=== PATIENT | male | born 1945 | race Caucasian/White ===

== ENCOUNTER → 2016-02-15 | Outpatient (CLI) | payer BC ==
[~2016-02-15] VITALS: Ht 177.8 cm; Wt 102.9 kg
[~2016-02-15] MED LIST: ALPR-411 PO; ASCO1TAB43 PO; ASPEC81 PO; ASPI81TA28 PO; ATOR-26 PO; CALC-20 PO; CAPT100T2 PO; CARV3.122 PO; ESCI1TAB10 PO; FINA5TAB PO; GLIP-197 PO; INSDGI SQ; INSU1INJ2 SC; MELO15TA4 PO; NOVOLOG INSULIN SQ; OXYC-106 PO; OXYSR10 PO; SILD100T PO; SILO8CAP PO; TAMS0.4C38 PO; XRL10 PO
[2016-02-15 14:42] VITALS: BP 155/70; PULSE 76; Ht 177.8 cm; Wt 102.9 kg
== END | disposition home or self-care (01) ==
LOC: C.NEUR 13:54
PROVIDERS: ATTEND Allergy & Immunology Allergy
DX: G47.33 Obstructive sleep apnea (adult) (pediatric) (principal); I10 Essential (primary) hypertension; E78.5 Hyperlipidemia, unspecified; I62.9 Nontraumatic intracranial hemorrhage, unspecified; E11.65 Type 2 diabetes mellitus with hyperglycemia

== ENCOUNTER → 2016-04-04 | Outpatient (CLI) | payer BC ==
[~2016-04-04] VITALS: Ht 177.8 cm; Wt 106.8 kg
[2016-04-04 12:37] VITALS: BP 153/83; PULSE 60; Ht 177.8 cm; Wt 106.8 kg
== END | disposition home or self-care (01) ==
LOC: C.NEUR 11:56
PROVIDERS: ATTEND Internal Medicine Pulmonary Disease
DX: G47.33 Obstructive sleep apnea (adult) (pediatric) (principal); I10 Essential (primary) hypertension; G47.00 Insomnia, unspecified; I62.9 Nontraumatic intracranial hemorrhage, unspecified

== ENCOUNTER → 2016-06-13 | Outpatient (CLI) | payer BC ==
[2016-06-13 14:40] LABS: BASO ABS # 0.07 K/uL (0-0.2); COMPLETE YES; EOS % 5.1 %; HEMATOCRIT 43.4 % (42-52); LYMPH % 33.5 %; LYMPH ABS # 2.28 K/uL (1.2-3.4); MEAN CELL VOLUME 86.1 fL (80-100); MEAN CORPUSCULAR HEMOGLOBIN 27.8 pg (25-34); MEAN CORPUSCULAR HGB CONC 32.3 g/dl (32-36); MEAN PLATELET VOLUME 10.6 fL (7.4-10.4); MONO % 9.9 %; NEUT % 50.5 %; PLATELET COUNT 278 K/uL (130-400); RED BLOOD COUNT 5.04 M/uL (4.7-6.1)
[2016-06-13 14:54] LABS: ESTIMATED AVERAGE GLUCOSE 151 mg/dl; HA1C FLAG Normal (Normal)
--- NOTE | 2016-06-19 12:24 | CODING QUERY MEDICAL NECESSITY ---
CQSUPPORTING DIAGNOSIS NEEDED A supporting diagnosis is required for the test/procedure performed on this patient in order for us to be reimbursed by the patient's insurance. Please provide a supporting diagnosis for the following test/procedure listed below next to the test name along with your signature. *If there is no additional diagnosis for this patient that would support the following test/procedure please document that below next to the test/procedure. Test(s)/Procedure(s) that require a supporting diagnosis: DOS 06/13/16 GLYCATED HEMOGLOBIN TEST ORDERED BY SUHAS LEVY Provider Signature: Date: Thank you Rosie Izaguirre [facility] Information [facility] Once completed, please kindly fax back to [phone] For questions please call [phone]
--- NOTE | 2016-06-19 12:29 | CODING QUERY MEDICAL NECESSITY ---
CQSUPPORTING DIAGNOSIS NEEDED A supporting diagnosis is required for the test/procedure performed on this patient in order for us to be reimbursed by the patient's insurance. Please provide a supporting diagnosis for the following test/procedure listed below next to the test name along with your signature. *If there is no additional diagnosis for this patient that would support the following test/procedure please document that below next to the test/procedure. Test(s)/Procedure(s) that require a supporting diagnosis: DOS 06/13/16 BLOOD COUNT ORDERED BY SUHAS KATHLEEN Provider Signature: Date: Thank you Rosie Izaguirre [facility] Information Management Once completed, please kindly fax back to [phone] For questions please call [phone]
== END | disposition home or self-care (01) ==
LOC: C.LAB1850 13:15
PROVIDERS: ATTEND Physician Assistant
DX: M65.80 Other synovitis and tenosynovitis, unspecified site (principal); E11.65 Type 2 diabetes mellitus with hyperglycemia

== ENCOUNTER → 2016-08-24 | Outpatient (CLI) | payer BC | END | disposition home or self-care (01) | LOC: C.LABSPEC 11:03 | PROVIDERS: ATTEND Nurse Practitioner Family | DX: Z12.5 Encounter for screening for malignant neoplasm of prostate (principal); N40.1 Benign prostatic hyperplasia with lower urinary tract symptoms; N20.0 Calculus of kidney; R32 Unspecified urinary incontinence ==

== ENCOUNTER → 2016-08-31 | Outpatient (CLI) | payer BC ==
--- NOTE | 2016-08-31 13:34 | DIAGNOSTIC IMAGING REPORT ---
KUB CLINICAL HISTORY: N20.0 [id number] nephrocalcinosis COMPARISON STUDY: No previous studies for comparison. FINDINGS: Poor visibility of the renal shadows due to overlying bowel content. Multiple pelvic calcifications both of which are most likely vascular although this is not confirmed. IMPRESSION: Non visibility of the kidneys due to considerable overlying bowel content. Multiple pelvic calcifications most likely vascular although ureteral calcifications cannot be completely excluded The above report was generated using voice recognition software. It may contain grammatical, syntax or spelling errors. Electronically signed by: Tj Vasquez M.D. 08/31/2016 1:33 PM Dictated Date/Time: 08/31/2016 1:31 PM
== END | disposition home or self-care (01) ==
LOC: C.RAD 12:49
PROVIDERS: ATTEND Nurse Practitioner Family
DX: N20.0 Calculus of kidney (principal); Z12.5 Encounter for screening for malignant neoplasm of prostate

== ENCOUNTER → 2016-09-12 | Outpatient (CLI) | payer BC ==
[~2016-09-12] MED LIST changes: -ASPEC81 PO; -NOVOLOG INSULIN SQ; -OXYC-106 PO; -OXYSR10 PO; -SILD100T PO; -XRL10 PO
--- NOTE | 2016-09-12 16:10 | DIAGNOSTIC IMAGING REPORT ---
KUB CLINICAL HISTORY: N20.0 [id number] nephrocalcinosis COMPARISON STUDY: 08/31/2016 FINDINGS: No change in the pelvic calcifications described previously. No new or interval change. Renal and psoas shows are unremarkable. Nonobstructive bowel pattern. IMPRESSION: No change in the left and to a lesser extent right pelvic soft tissue calcifications. No calcifications overlying the kidneys or psoas regions The above report was generated using voice recognition software. It may contain grammatical, syntax or spelling errors. Electronically signed by: Tj Vasquez M.D. 09/12/2016 4:09 PM Dictated Date/Time: 09/12/2016 4:07 PM
== END | disposition home or self-care (01) ==
LOC: C.RAD 15:16
PROVIDERS: ATTEND Nurse Practitioner Family
DX: N20.0 Calculus of kidney (principal)

== ENCOUNTER → 2016-09-27 | Day surgery (SDC) | payer BC ==
[2016-09-11 09:01] VITALS: Ht 177.8 cm; Wt 95.5 kg
[~2016-09-27] VITALS: Ht 177.8 cm; Wt 95.5 kg
[~2016-09-27] MED LIST changes: +EpHEDrine SULFATE 50MG/5ML SYR ONE; +LIDOCAINE HCL 2% 2 ML VIAL (20MG/ML) ONE; +PROPOFOL IV EMULSION 10 MG/ML 20 ML VIAL IV ONE; +SODIUM CHLORIDE 0.9% 500ML 500 ML IV ONE
--- NOTE | 2016-09-27 14:26 | Endo History and Physical ---
History & Physical Date of Service: Sep 27, 2016. Chief Complaint: hx of colon polyps, fhx CRC young age Referring Physician: History of Present Illness Here for colonoscopy for above. NO complaints. Past Medical History Diabetes, Cancer, High Cholesterol, Hypertension, Kidney Disease, CVA/TIA Past Surgical History Hx Cardiac Surgery: Yes (HEART CATH, NO STENTS) Hx Internal Defibrillator: No Hx Pacemaker: No Hx Abdominal Surgery: No Hx of Implantable Prosthesis: No Hx Post-Op Nausea and Vomiting: No Hx Cancer Surgery: Yes (RT KIDNEY TUMOR REMOVAL, MULTIPLE MELANOMA REMOVALS) Hx Thoracic Surgery: No Hx Orthopedic: Yes (RT TKA AND RE-REPLACED 1 YEAR AGO) Hx Urinary Tract Surgery: No Family History Colon CA Social History Smoking Status: Never Smoker Hx Substance Use: No Hx Alcohol Use: Yes (1-2 CANS PER WEEK) Allergies Coded Allergies: No Known Allergies (Verified , 09/27/16) Current Medications Reported Home Medications Medications Dose Route/Sig Max Daily Dose Days Date Category Dose Instructions Flomax (Tamsulosin Hcl) 0.4 Mg Cap 0.4 Mg PO HS 09/11/16 Reported Meloxicam 15 Mg Tab 1 Tab PO QAM 09/11/16 Reported Novolog Penfill (Insulin Aspart) 100 Unit/Ml Inj 1 Dose SC UD 09/11/16 Reported PER SLIDING SCALE Rapaflo (Silodosin) 8 Mg Cap 1 Cap PO QAM 09/11/16 Reported Proscar (Finasteride) 5 Mg Tab 5 Mg PO QAM 09/11/16 Reported Xanax (Alprazolam) 0.5 Mg Tab 0.5 Mg PO QAM 09/11/16 Reported Aspirin Ec (Aspirin) 81 Mg Tab 81 Mg PO QAM 11/02/15 Reported Glipizide Er (Glipizide) 5 Mg Tab 2 Tabs PO QAM 11/02/15 Reported Lantus (Insulin Glargine) 100 Unit/Ml Inj 8 Units SQ HS 11/02/15 Reported Lipitor (Atorvastatin Calcium) 80 Mg Tab 80 Mg PO HS 12/10/13 Reported Coreg (Carvedilol) 3.125 Mg Tab 3.125 Mg PO BID 09/23/13 Reported Sm Vitamin C (Ascorbic Acid) 500 Mg Tab 500 Mg PO QAM 10/08/12 Reported Captopril 100 Mg Tab 200 Mg PO BID 10/08/12 Reported Calcium 600 + D (Calcium Carbonate-Vitamin D) 1 Tab Tab 1 Tab PO QAM 10/08/12 Reported Lexapro (Escitalopram Oxalate) 20 Mg Tab 20 Mg PO QPM 01/03/10 Reported Vital Signs Weight (Kilograms): 95.45 Height (Feet): 5 Height (Inches): 10 Review of Systems Respiratory: No shortness of breath Cardiovascular: No chest pain Physical Exam General Appearance: WD/WN, no apparent distress Respiratory/Chest: Respiratory effort: no dyspnea, good air movement Auscultation: breath sounds normal Cardiovascular: Apical Impulse: not displaced Heart Auscultation: RRR Abdomen: Bowel Sounds: normal Inspection & Palpation: soft, non-distended, no tenderness, guarding & rebound, no masses Liver: no hepatomegaly Assessment and Plan For colonoscopy
--- NOTE | 2016-09-27 15:43 | Discharge Instructions ---
Endoscopy Patient Instructions Date / Procedure(s) Performed Sep 27, 2016. Colonoscopy Allergy Information Coded Allergies: No Known Allergies (Verified , 09/27/16) Discharge Date / Findings Sep 27, 2016. Diverticulosis and colon polyps. Medication Instructions Stopped Medication(s): ASPIRIN 81MG LAST DOSE 09/20/16 Restart Stopped Medication(s): Resume Aspirin tomorrow. Provider Instructions Activity Restrictions - No exercising or heavy lifting for 24 hours. - Do not drink alcohol the day of the procedure. - Do not drive a car or operate machinery until the day after the procedure. - Do not make any important decisions or sign important papers in 24 hours after the procedure. Following Day: - Return to full activity which may include returning to work/school. Diet Start your diet with liquids and light foods (jello, soup, juice, toast). Then eat your usual diet if not nauseated. Treatment For Common After Affects For mild abdominal pain, bloating, or excessive gas: - Rest - Eat lightly - Lie on right side Repeat colonoscopy depending on pathology but probably in 2 years. Follow-Up Information Follow-up with DR. SULLIVAN as scheduled Anesthesia Information What You Should Know You have had a procedure that required some medicine to reduce anxiety and discomfort. This treatment is called moderate sedation. After receiving the treatment, you may be sleepy, but you will be able to breathe on your own. The effects of the treatment may last for several hours. Follow these instructions along with Activity/Diet recommendations noted above: * Do NOT do anything where dizziness or clumsiness would be dangerous. * Rest quietly at home today, then you can be up and about tomorrow. * Have a responsible person stay with you the rest of today. * You may have had an I.V. today. If so, you may take the dressing off later today. Recommendations Call your doctor if: * Trouble breathing * Continuous vomiting for more than 24 hours * Temperature above 101 degrees * Severe abdominal pain or bloating * Pain not relieved by pain medicine ordered * There is increased drainage or redness from any incision * A large amount of rectal bleeding greater than 2-3 tablespoons. (If you had a polyp/s removed or have hemorrhoids, a small amount of blood - from the rectum is to be expected.) * You have any unanswered questions or concerns. IN THE EVENT OF A SERIOUS EMERGENCY, GO TO THE NEAREST EMERGENCY ROOM Your discharge instructions were prepared by provider Joel Moreno. Patient Instructions Signature Page Jonatan Bar Patient (or Guardian) Signature/Date: I have read and understand the instructions given to me by my caregivers. Caregiver/RN/Doctor Signature/Date: The above-named patient and/or guardian has received patient instructions on this date. + Original Patient Signature Page (only) stays with chart. Please make copy for patient.
--- NOTE | 2016-09-27 15:48 | Anesthesiology Progress Note ---
Anesthesia Post Op Note Date & Time Sep 27, 2016 at 15:48 Vital Signs Pain Intensity: 0 Vital Signs Past 12 Hours Date Time Temp Pulse Resp B/P (MAP) Pulse Ox O2 Delivery O2 Flow Rate FiO2 09/27/16 14:27 36.9 57 18 156/82 (106) 97 Room Air Notes Mental Status: alert / awake / arousable, participated in evaluation Pt Amnestic to Procedure: Yes Nausea / Vomiting: adequately controlled Pain: adequately controlled Airway Patency, RR, SpO2: stable & adequate BP & HR: stable & adequate Hydration State: stable & adequate Anesthetic Complications: no major complications apparent
[2016-09-27 15:51] VITALS: BP 127/61; PULSE 69; O2SAT 94
--- NOTE | 2016-09-27 15:56 | Progress Note ---
Progress Note Date of Service Sep 27, 2016. Progress Note pt without complaint. Went over results with patient and .
--- NOTE | 2016-09-28 00:15 | GI REPORT ---
Procedure Date: 09/27/2016 2:22 PM Procedure: Colonoscopy Indications: Screening in patient at increased risk: Colorectal cancer in mother before age 60 (age 39), High risk colon cancer surveillance: Personal history of colonic polyps last colonoscopy 2013 Medicines: Monitored Anesthesia Care Complications: No immediate complications. Estimated blood loss: Minimal. Estimated Blood Loss: Estimated blood loss was minimal. Procedure: Pre-Anesthesia Assessment: - The risks and benefits of the procedure and the sedation options and risks were discussed with the patient. All questions were answered and informed consent was obtained. - Patient identification and proposed procedure were verified prior to the procedure by the physician, the nurse, the relations manager and the sound technician. The procedure was verified in the procedure room. After I obtained informed consent, the scope was passed under direct vision. Throughout the procedure, the patient's blood pressure, pulse, and oxygen saturations were monitored continuously. The scope was introduced through the anus and advanced to the cecum, identified by appendiceal orifice and ileocecal valve. The colonoscopy was performed without difficulty. The patient tolerated the procedure well. The bowel preparation used was SUPREP. Procedure and risks explained to patient which include but not limited to med reaction, bleeding, perforation, aspiration and missed lesions. Judicious gas insufflation and gas removal done on the way out. The lumen always well visualized when advancing the scope. Washes and suctioning used as needed for good visuzlization of mucosa. Prep was good. Retroflexion in the rectum to look at the distal rectum and anal canal done. Findings: A 4 mm polyp was found in the cecum. The polyp was sessile. The polyp was removed with a lift and cut technique using a hot snare. Resection and retrieval were complete. Estimated blood loss was minimal. A 2 mm polyp was found in the ascending colon. The polyp was sessile. The polyp was removed with a cold biopsy forceps. Resection and retrieval were complete. Internal hemorrhoids were found during retroflexion. The hemorrhoids were medium-sized. Multiple small and large-mouthed diverticula were found from sigmoid to ascending colon. The exam was otherwise without abnormality on direct and retroflexion views. Impression: - One 4 mm polyp in the cecum, removed using lift and cut and a hot snare. Resected and retrieved. - One 2 mm polyp in the ascending colon, removed with a cold biopsy forceps. Resected and retrieved. - Internal hemorrhoids. - Diverticulosis from sigmoid to ascending colon. - The examination was otherwise normal on direct and retroflexion views. Recommendation: - Discharge patient to home (ambulatory). - Await pathology results. - Repeat colonoscopy for surveillance based on pathology results. - Return to primary care physician PRN. Joel Moreno M.D. Joel Moreno MD 09/27/2016 3:49:49 PM This report has been signed electronically. Note Initiated On: 09/27/2016 2:22 PM I attest to the content of the Intraoperative Record and orders documented therein, exceptions below
== END | disposition home or self-care (01) ==
LOC: C.GI 13:33
PROVIDERS: ATTEND Internal Medicine Gastroenterology
DX: Z12.11 Encounter for screening for malignant neoplasm of colon (principal); D12.2 Benign neoplasm of ascending colon; D12.0 Benign neoplasm of cecum; K57.30 Diverticulosis of large intestine without perforation or abscess without bleeding; K64.8 Other hemorrhoids; Z86.010 Personal history of colon polyps; Z80.0 Family history of malignant neoplasm of digestive organs; E11.9 Type 2 diabetes mellitus without complications; I10 Essential (primary) hypertension; E78.00 Pure hypercholesterolemia, unspecified; N28.9 Disorder of kidney and ureter, unspecified; Z86.73 Personal history of transient ischemic attack (TIA), and cerebral infarction without residual deficits; Z79.4 Long term (current) use of insulin; Z79.82 Long term (current) use of aspirin; Z79.899 Other long term (current) drug therapy

== ENCOUNTER → 2016-10-03 | Outpatient (CLI) | payer BC ==
[~2016-10-03] VITALS: Ht 177.8 cm; Wt 100.6 kg
[~2016-10-03] MED LIST changes: -EpHEDrine SULFATE 50MG/5ML SYR ONE; -LIDOCAINE HCL 2% 2 ML VIAL (20MG/ML) ONE; -PROPOFOL IV EMULSION 10 MG/ML 20 ML VIAL IV ONE; -SODIUM CHLORIDE 0.9% 500ML 500 ML IV ONE
[2016-10-03 12:18] VITALS: BP 130/79; PULSE 57; Ht 177.8 cm; Wt 100.6 kg
== END | disposition home or self-care (01) ==
LOC: C.NEUR 11:52
PROVIDERS: ATTEND Physician Assistant Medical
DX: G47.33 Obstructive sleep apnea (adult) (pediatric) (principal); E11.9 Type 2 diabetes mellitus without complications

== ENCOUNTER → 2016-10-17 | Outpatient (CLI) | payer BC ==
--- NOTE | 2016-10-17 12:27 | DIAGNOSTIC IMAGING REPORT ---
KUB CLINICAL HISTORY: N20.0 Nephrolithiasis nephrocalcinosis COMPARISON STUDY: 09/12/2016 FINDINGS: Stable exam with no change from the prior study. Unchanging pelvic vascular calcifications. No significant urinary tract calcifications. Nonobstructive bowel pattern. IMPRESSION: Negative study. No change from the prior exam. The above report was generated using voice recognition software. It may contain grammatical, syntax or spelling errors. Electronically signed by: Tj Vasquez M.D. 10/17/2016 12:26 PM Dictated Date/Time: 10/17/2016 12:25 PM
[2016-10-17 13:24] LABS: BASO % 0.6 %; BASO ABS # 0.05 K/uL (0-0.2); COMPLETE YES; EOS % 6.5 %; HEMATOCRIT 42.8 % (42-52); IG% 0.3 %; LYMPH % 25.3 %; LYMPH ABS # 1.97 K/uL (1.2-3.4); MEAN CELL VOLUME 91.6 fL (80-100); MEAN CORPUSCULAR HEMOGLOBIN 30.8 pg (25-34); MEAN CORPUSCULAR HGB CONC 33.6 g/dl (32-36); MEAN PLATELET VOLUME 11.3 fL (7.4-10.4); MONO % 10.4 %; NEUT % 56.9 %; PLATELET COUNT 230 K/uL (130-400); RED BLOOD COUNT 4.67 M/uL (4.7-6.1)
[2016-10-17 13:28] LABS: URINE APPEARANCE CLEAR (CLEAR); URINE BILIRUBIN NEG (NEG); URINE COLOR YELLOW; URINE EPITHELIAL CELL AUTO 0-5 /lpf (0-5); URINE NITRITE NEG (NEG); URINE PH 5.5 (4.5-7.5); URINE SPECIFIC GRAVITY 1.015 (1.000-1.030); UROBILINOGEN NEG (NEG)
[2016-10-17 13:36] LABS: MANUAL MICROSCOPIC REQUIRED? NO; REVIEW REQ? NO
[2016-10-17 13:50] LABS: ESTIMATED AVERAGE GLUCOSE 143 mg/dl; HA1C FLAG Normal (Normal)
[2016-10-17 14:35] LABS: ALT/SGPT 57 U/L (12-78); AST/SGOT 50 U/L (15-37); BLOOD UREA NITROGEN 17 mg/dl (7-18); BUN/CREATININE RATIO 21.7 (10-20); CALCIUM 8.9 mg/dl (8.5-10.1); CARBON DIOXIDE 26 mmol/L (21-32); CHLORIDE 108 mmol/L (98-107); CHOLESTEROL 110 mg/dl (0-200); GLUCOSE 110 mg/dl (70-99); POTASSIUM 4.3 mmol/L (3.5-5.1); SODIUM 139 mmol/L (136-145); TRIGLYCERIDES 55 mg/dl (0-150); VERY LOW DENSITY LIPOPROT CALC 11 mg/dl
[2016-10-17 14:42] LABS: RATIO 28.8 mcg/mg (0-30.0)
[2016-10-17 14:46] LABS: CHOLESTEROL/HDL RATIO 1.6; HDL CHOLESTEROL 67 mg/dl; LDL CHOLESTEROL CALCULATED 32 mg/dl
== END | disposition home or self-care (01) ==
LOC: C.RADBC 11:58
PROVIDERS: ATTEND Nurse Practitioner Family
DX: I10 Essential (primary) hypertension (principal); E78.5 Hyperlipidemia, unspecified; E11.65 Type 2 diabetes mellitus with hyperglycemia; N40.1 Benign prostatic hyperplasia with lower urinary tract symptoms; N20.0 Calculus of kidney

== ENCOUNTER → 2016-11-03 | Outpatient (CLI) | payer BC | END | disposition home or self-care (01) | LOC: C.LABBC 09:15 | PROVIDERS: ATTEND Physician Assistant | DX: R74.8 Abnormal levels of other serum enzymes (principal) ==

== ENCOUNTER → 2017-01-08 | Outpatient (CLI) | payer BC ==
[2017-01-09 07:07] LABS: ESTIMATED AVERAGE GLUCOSE 134 mg/dl; HA1C FLAG Normal (Normal)
== END | disposition home or self-care (01) ==
LOC: C.LABBC 10:59
PROVIDERS: ATTEND Physician Assistant
DX: E11.9 Type 2 diabetes mellitus without complications (principal)

== ENCOUNTER → 2017-03-16 | Outpatient (CLI) | payer BC ==
[2017-03-14 11:20] LABS: BLOOD UREA NITROGEN 25 mg/dl (7-18); CREATININE 0.83 mg/dl (0.60-1.40)
[~2017-03-16] MED LIST changes: +MELO-83 PO; -MELO15TA4 PO; +OPTIRAY 320 IV PRN
--- NOTE | 2017-03-16 14:18 | DIAGNOSTIC IMAGING REPORT ---
CT SCAN OF THE ABDOMEN AND PELVIS WITH IV CONTRAST CLINICAL HISTORY: Generalized abdominal pain. COMPARISON STUDY: Abdominal CT dated 02/28/2012. TECHNIQUE: Following the IV administration of 94 cc of Optiray 320, CT scan of the abdomen and pelvis is performed from the lung bases to the proximal femora. Images are reviewed in the axial, sagittal, and coronal planes. IV contrast was administered without complication. A dose lowering technique was utilized adhering to the principles of ALARA. FINDINGS: Lung bases: The heart is enlarged and without pericardial effusion. The coronary arteries are densely calcified. A tiny hiatal hernia is identified. A small fat-containing Bochdalek hernia is seen at the left lung base. No airspace consolidation or pleural effusion is identified. Dependent atelectasis is noted. 2 small foci of nodularity at the left lung base seen on image #42 and measuring up to 8 mm as well as a 3 mm focus of pleural-based nodularity in the lingula seen on image #4 are unchanged dating back to 2012 and of doubtful significance due to long-term stability. Liver: The contrast-enhanced liver is normal in size, contour, and attenuation. There is no intrahepatic biliary ductal dilatation. The hepatic veins and portal veins are patent. A 1.5 cm cyst is seen in the left lobe. Gallbladder: Unremarkable. Spleen: Normal in size and attenuation. Pancreas: Unremarkable. Adrenal glands: Unremarkable. Kidneys: The contrast enhanced kidneys demonstrate mild cortical atrophy and are without hydronephrosis. The kidneys enhance symmetrically. Scattered subcentimeter cortical hypodensities likely represent cysts but are too small for definitive characterization. Abdominal vasculature: The abdominal aorta is normal in course and caliber noting moderate atherosclerotic calcification. Bowel: There is advanced colonic diverticulosis without CT evidence of acute diverticulitis. Moderate to advanced constipation is observed. The appendix is well-visualized and normal. Peritoneum: There is no intraperitoneal free air or abdominal ascites. Lymphadenopathy: None. Pelvic viscera: There is median lobe hypertrophy of the prostate gland. The bladder is normal as visualized. Skeletal structures: The skeletal structures are osteopenic. There is a mild superior endplate compression deformity of T12. Mild lumbosacral spondylosis is observed. No lytic or blastic lesions are seen. IMPRESSION: 1. There are no acute infectious or inflammatory findings in the abdomen or pelvis. 2. Moderate to severe constipation. No bowel obstruction is seen. 3. Advanced colonic diverticulosis without CT evidence of acute diverticulitis. 4. There is a mild and age indeterminant superior endplate compression deformity of T12. This is new from 2013. Correlate for point tenderness at this level. 5. Cardiomegaly. 6. Subcentimeter pulmonary nodules at the left lung base are unchanged dating back to 2013 and of doubtful significance given long-term stability. 7. Additional findings as above. Electronically signed by: Lukas Russell M.D. 03/16/2017 2:16 PM Dictated Date/Time: 03/16/2017 2:10 PM
--- NOTE | 2017-03-16 14:21 | DIAGNOSTIC IMAGING REPORT ---
(CHEST) THORAX WITH CLINICAL HISTORY: 72 years-old Male presenting with R91.1 Pulmonary [id number]. TECHNIQUE: Multidetector CT imaging of the chest was performed after the administration of intravenous contrast. IV contrast: None. A dose lowering technique was used consistent with the principles of ALARA (as low as reasonably achievable). COMPARISON: 02/04/2011. CT DOSE (mGy.cm): The estimated cumulative dose is 1188.64 mGy.cm. FINDINGS: Flight Service Specialist topogram: Unremarkable. On soft tissue windows, normal thyroid and thoracic inlet. Small bilateral hilar lymph nodes, possibly reactive. No mediastinal lymphadenopathy. Atherosclerosis of the aorta. Multichamber enlargement of the heart. Coronary artery calcification. No pericardial or pleural effusion. Hypodensity in the left hepatic lobe indeterminate but likely hepatic cyst. On lung windows, solid fissural 6 mm nodule in the right middle lobe (series 6 image 134) solid fissural triangular 7 mm nodule in the superior segment of the right lower lobe (series 6 image 98). Solid peripheral/subpleural 4 mm nodule in the lingula (series 6 image 149). 2 adjacent solid peripheral nodules in the left lower lobe measuring 6 mm and 8 mm (series 6 image 187). Nearly all these nodules have increased in size slightly by 1 to 2 mm since the prior exam in 2010. No new nodule. Mosaic attenuation at the lung bases with minimal dependent changes likely atelectasis. Bronchial wall thickening primarily in the lower lobes. Central airways patent. On bone windows, degenerative changes of the spine. 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 IMPRESSION: 1. Multiple solid pulmonary nodules bilaterally. These have minimally increased in size since the prior exam by 1 to 2 mm. No new nodule. These nodules are most consistent with a benign etiology. 2. Small airways disease suggested at the lung bases. 3. Bronchial wall thickening in the lower lobes could represent mild congestive change or bronchitis. 4. Small bilateral hilar lymph nodes are likely reactive. Electronically signed by: Sidney Small M.D. 03/16/2017 2:20 PM Dictated Date/Time: 03/16/2017 2:11 PM
== END | disposition home or self-care (01) ==
LOC: C.CTS 13:36
PROVIDERS: ATTEND Internal Medicine
DX: D49.519 Neoplasm of unspecified behavior of unspecified kidney (principal); R91.8 Other nonspecific abnormal finding of lung field; K59.00 Constipation, unspecified; K57.90 Diverticulosis of intestine, part unspecified, without perforation or abscess without bleeding; M43.8X4 Other specified deforming dorsopathies, thoracic region; I51.7 Cardiomegaly

== ENCOUNTER → 2017-04-03 | Outpatient (CLI) | payer BC ==
[~2017-04-03] VITALS: Ht 177.8 cm; Wt 91.0 kg
[~2017-04-03] MED LIST changes: -OPTIRAY 320 IV PRN
[2017-04-03 14:00] VITALS: BP 135/73; PULSE 60; Ht 177.8 cm; Wt 91.0 kg
== END | disposition home or self-care (01) ==
LOC: C.NEUR 12:15
PROVIDERS: ATTEND Internal Medicine Pulmonary Disease
DX: G47.33 Obstructive sleep apnea (adult) (pediatric) (principal)

== ENCOUNTER → 2017-04-09 | Outpatient (CLI) | payer BC | END | disposition home or self-care (01) | LOC: C.LABSPEC 17:30 | PROVIDERS: ATTEND Nurse Practitioner Adult Health | DX: R32 Unspecified urinary incontinence (principal); N40.1 Benign prostatic hyperplasia with lower urinary tract symptoms ==

== ENCOUNTER → 2017-04-16 | Outpatient (CLI) | payer BC ==
--- NOTE | 2017-04-16 11:13 | DIAGNOSTIC IMAGING REPORT ---
KUB CLINICAL HISTORY: N20.0 [id number] BPH with obstruction/lower urinary tr nephrocalcinosis COMPARISON STUDY: 10/17/2016 FINDINGS: The soft tissues, psoas shadows, renal outlines and intestinal gas pattern appear normal. There is no evidence for bowel obstruction. No abnormal abdominal calcifications are seen. No change from the prior exam. IMPRESSION: Negative study. No evidence for nephrocalcinosis. No change from the prior study. The above report was generated using voice recognition software. It may contain grammatical, syntax or spelling errors. Electronically signed by: Tj Vasquez M.D. 04/16/2017 11:11 AM Dictated Date/Time: 04/16/2017 11:10 AM
== END | disposition home or self-care (01) ==
LOC: C.RADBC 09:52
PROVIDERS: ATTEND Urology
DX: N40.1 Benign prostatic hyperplasia with lower urinary tract symptoms (principal); N20.0 Calculus of kidney

== ENCOUNTER → 2017-04-23 | Outpatient (CLI) | payer BC ==
[2017-04-23 09:34] LABS: BASO % 1.4 %; EOS % 6.8 %; EOS ABS # 0.48 K/uL (0-0.5); HEMATOCRIT 41.4 % (42-52); HEMOGLOBIN 13.6 g/dL (14.0-18.0); IG# 0.01 K/uL (0.00-0.02); LYMPH % 36.9 %; MEAN CELL VOLUME 93.7 fL (80-100); MEAN CORPUSCULAR HEMOGLOBIN 30.8 pg (25-34); MEAN CORPUSCULAR HGB CONC 32.9 g/dl (32-36); MEAN PLATELET VOLUME 11.1 fL (7.4-10.4); MONO % 9.8 %; MONO ABS # 0.69 K/uL (0.11-0.59); NEUT ABS # 3.17 K/uL (1.4-6.5); PLATELET COUNT 249 K/uL (130-400); RED CELL DISTRIBUTION WIDTH CV 13.8 % (11.5-14.5); RED CELL DISTRIBUTION WIDTH SD 47.3 fL (36.4-46.3); WHITE BLOOD COUNT 7.05 K/uL (4.8-10.8)
[2017-04-23 09:58] LABS: ALT/SGPT 36 U/L (12-78); AST/SGOT 20 U/L (15-37); BLOOD UREA NITROGEN 31 mg/dl (7-18); CALCIUM 9.2 mg/dl (8.5-10.1); CARBON DIOXIDE 26 mmol/L (21-32); CHOLESTEROL 126 mg/dl (0-200); CREATININE 0.85 mg/dl (0.60-1.40); GLUCOSE 137 mg/dl (70-99); POTASSIUM 4.3 mmol/L (3.5-5.1); SODIUM 140 mmol/L (136-145)
[2017-04-23 10:02] LABS: LDL CHOLESTEROL CALCULATED 37 mg/dl
[2017-04-23 10:14] LABS: HEMOGLOBIN A1C 6.8 % (4.5-5.6)
== END | disposition home or self-care (01) ==
LOC: C.LAB 07:09
PROVIDERS: ATTEND Physician Assistant
DX: E78.5 Hyperlipidemia, unspecified (principal); E11.65 Type 2 diabetes mellitus with hyperglycemia; I10 Essential (primary) hypertension

== ENCOUNTER → 2017-04-30 | Outpatient (CLI) | payer BC ==
--- NOTE | 2017-04-30 12:57 | DIAGNOSTIC IMAGING REPORT ---
ULTRASOUND KIDNEYS AND BLADDER CLINICAL HISTORY: Urinary incontinence. Nephrolithiasis. Reported history of renal cell carcinoma. COMPARISON STUDY: Abdominal CT dated 03/16/2017. TECHNIQUE: Real-time, grayscale, and color flow sonography of the kidneys and bladder is performed. Images are reviewed in the transverse and longitudinal planes. FINDINGS: Kidneys: The kidneys are normal in size and echotexture. The right kidney measures 11.4 cm in length and the left kidney measures 11.0 cm in length. There is no hydronephrosis. No shadowing renal calculi are identified. Small bilateral renal cysts measure up to 1.4 m cm. There is no sonographic evidence of solid renal mass lesion. No perinephric fluid is identified. Bladder: The prostate gland is enlarged, noting median lobe hypertrophy. The bladder wall is thickened and trabeculated suggesting chronic outlet obstruction. Bilateral ureteral jets were seen. IMPRESSION: 1. The kidneys are normal in size and without hydronephrosis. 2. Prostatomegaly with evidence of chronic bladder outlet obstruction. Electronically signed by: Lukas Russell M.D. 04/30/2017 12:56 PM Dictated Date/Time: 04/30/2017 12:54 PM
== END | disposition home or self-care (01) ==
LOC: C.ULTR 11:07
PROVIDERS: ATTEND Urology
DX: N40.1 Benign prostatic hyperplasia with lower urinary tract symptoms (principal); N20.0 Calculus of kidney

== ENCOUNTER → 2017-06-06 | Outpatient (CLI) | payer BC ==
--- NOTE | 2017-06-06 12:32 | DIAGNOSTIC IMAGING REPORT ---
HAND MIN 3 VIEWS ROUTINE CLINICAL HISTORY: CUT ON LT 2ND FINGER trauma. Laceration. COMPARISON: None. DISCUSSION: Moderate degenerative change of the interphalangeal joints throughout. Findings of mild soft tissue edematous change] disruption overlying the proximal aspect of the second finger. Several small minimally radiopaque foreign bodies are identified dorsal and medial to the proximal phalanx. No well-defined acute bony abnormality. IMPRESSION: 1. Soft tissue edematous change and or disruption overlying the second finger. 2. Several faintly radiopaque foreign bodies within the soft tissues overlying the proximal phalanx as discussed. 3. No acute bony abnormality. The above report was generated using voice recognition software. It may contain grammatical, syntax or spelling errors. Electronically signed by: Tj Vasquez M.D. 06/06/2017 12:31 PM Dictated Date/Time: 06/06/2017 12:29 PM
[2017-06-06 12:40] LABS: BLOOD UREA NITROGEN 29 mg/dl (7-18); CREATININE 0.82 mg/dl (0.60-1.40)
== END | disposition home or self-care (01) ==
LOC: C.RAD 11:00
PROVIDERS: ATTEND Internal Medicine
DX: S61.221A Laceration with foreign body of left index finger without damage to nail, initial encounter (principal); X58.XXXA Exposure to other specified factors, initial encounter

== ENCOUNTER 2017-06-26 05:32 | Inpatient (IN) | payer BC, OTHER ==
[2017-06-11 10:26] VITALS: BMI 29.0
--- NOTE | 2017-06-11 11:17 | PAT Medication Instructions ---
Service Date June 11, 2017. Current Home Medication List Alprazolam (Xanax), 0.5 MG PO QAM Ascorbic Acid (Sm Vitamin C), 500 MG PO QAM Aspirin (Aspirin Ec), 81 MG PO QAM Atorvastatin (Lipitor), 80 MG PO HS Calcium Carbonate-Vitamin D (Calcium 600 + D), 1 TAB PO QAM Captopril (Captopril), 200 MG PO BID Carvedilol (Coreg), 3.125 MG PO BID Cephalexin Monohydrate (Keflex), 500 MG PO TID Escitalopram Oxalate (Lexapro), 20 MG PO QPM Finasteride (Proscar), 5 MG PO QAM Glipizide (Glipizide Er), 2 TABS PO QAM Metformin Hcl (Glucophage Ext Rel), 1,000 MG PO BID Multivitamin (Multivitamin), 1 TAB PO QAM Silodosin (Rapaflo), 1 CAP PO QAM Medication Instructions For Your Scheduled Surgery -Check with your pipelaying fitter before stopping: Aspirin (Aspirin Ec), 81 MG PO QAM (to be held x 14 days per surgeon) -Continue as directed: Cephalexin Monohydrate (Keflex), 500 MG PO TID - Hold the following medications the morning of surgery: Ascorbic Acid (Sm Vitamin C), 500 MG PO QAM Calcium Carbonate-Vitamin D (Calcium 600 + D), 1 TAB PO QAM Captopril (Captopril), 200 MG PO BID Finasteride (Proscar), 5 MG PO QAM Glipizide (Glipizide Er), 2 TABS PO QAM Metformin Hcl (Glucophage Ext Rel), 1,000 MG PO BID Multivitamin (Multivitamin), 1 TAB PO QAM - Take the following medications the morning of surgery with a sip of water: Alprazolam (Xanax), 0.5 MG PO QAM Carvedilol (Coreg), 3.125 MG PO BID Silodosin (Rapaflo), 1 CAP PO QAM - Take the following medications as scheduled the night before surgery: Atorvastatin (Lipitor), 80 MG PO HS Captopril (Captopril), 200 MG PO BID Carvedilol (Coreg), 3.125 MG PO BID Escitalopram Oxalate (Lexapro), 20 MG PO QPM Metformin Hcl (Glucophage Ext Rel), 1,000 MG PO BID If you have any questions please call us at [phone] or [phone] or [phone]
[2017-06-11 12:00] LABS: BASO % 0.6 %; BASO ABS # 0.04 K/uL (0-0.2); EOS % 4.1 %; EOS ABS # 0.29 K/uL (0-0.5); HEMATOCRIT 39.6 % (42-52); HEMOGLOBIN 13.6 g/dL (14.0-18.0); IG# 0.01 K/uL (0.00-0.02); LYMPH ABS # 1.89 K/uL (1.2-3.4); MEAN CELL VOLUME 90.4 fL (80-100); MEAN CORPUSCULAR HEMOGLOBIN 31.1 pg (25-34); MEAN CORPUSCULAR HGB CONC 34.3 g/dl (32-36); MEAN PLATELET VOLUME 11.3 fL (7.4-10.4); MONO % 7.2 %; NEUT ABS # 4.26 K/uL (1.4-6.5); PLATELET COUNT 220 K/uL (130-400); RED CELL DISTRIBUTION WIDTH CV 13.4 % (11.5-14.5); RED CELL DISTRIBUTION WIDTH SD 44.1 fL (36.4-46.3); WHITE BLOOD COUNT 6.99 K/uL (4.8-10.8)
[2017-06-11 12:06] LABS: CALCIUM 8.6 mg/dl (8.5-10.1); CREATININE 0.8 mg/dl (0.60-1.40)
--- NOTE | 2017-06-11 12:26 | DIAGNOSTIC IMAGING REPORT ---
CHEST 2 VIEWS ROUTINE HISTORY: Preop. COMPARISON: Chest 08/27/2015. FINDINGS: The lungs are clear. Cardiac silhouette is normal in size. No pleural effusions. No pneumothorax. IMPRESSION: No acute process. Electronically signed by: Alfonso Adamson M.D. 06/11/2017 12:24 PM Dictated Date/Time: 06/11/2017 12:22 PM
[~2017-06-26] VITALS: Ht 177.8 cm; Wt 97.5 kg
[~2017-06-26 05:32] MED LIST changes: +CEPH500C2 PO; -INSDGI SQ; -INSU1INJ2 SC; -MELO-83 PO; +METF1TAB53 PO; +MULT-506 PO; -TAMS0.4C38 PO
[2017-06-26 05:58] VITALS: BP 137/77; PULSE 64; TEMP 36.8; O2SAT 94; Ht 177.8 cm; Wt 97.5 kg
[2017-06-26] MEDS ORDERED: LACTATED RINGER'S 1000ML 1,000 ML IV SCH (06:00)
[2017-06-26] MEDS ORDERED: CEFAZOLIN 2000MG IV PUSH 15 ML IV SCH (06:00)
[2017-06-26] MEDS ORDERED: ONDANSETRON INJ 2 MG/ML 2 ML VIAL IV PRN ×2 (06:30→07:15)
[2017-06-26] MEDS ORDERED: FENTANYL CITRATE INJ 50 MCG/1 ML 2 ML VIAL IV PRN (06:30)
[2017-06-26] MEDS ORDERED: EpHEDrine SULFATE INJ 50 MG/ML AMP IV PRN (06:30)
[2017-06-26] MEDS ORDERED: ATROPINE SULFATE 0.1 MG/ML 5ML SYR IV PRN (06:30)
[2017-06-26] MEDS ORDERED: HYDROmorphone INJ 0.5 MG/0.5 ML SYR IV PRN (06:30)
[2017-06-26] MEDS ORDERED: PHENYLEPHRINE 100MCG/ML 5ML SYR IV PRN (06:30)
[2017-06-26] MEDS ORDERED: ONDANSETRON INJ 2 MG/ML 2 ML VIAL ONE (06:55)
[2017-06-26] MEDS ORDERED: FENTANYL CITRATE INJ 50 MCG/1 ML 2 ML VIAL ONE (06:55)
[2017-06-26] MEDS ORDERED: PROPOFOL IV EMULSION 10 MG/ML 20 ML VIAL ONE (06:55)
[2017-06-26] MEDS ORDERED: DEXAMETHASONE SOD INJ 4 MG/ML VIAL ONE (06:55)
[2017-06-26] MEDS ORDERED: LIDOCAINE HCL 2% 2 ML VIAL (20MG/ML) ONE (06:55)
[2017-06-26] MEDS ORDERED: MIDAZOLAM HCL 1 MG/ML 2ML VIAL ONE (06:55)
--- NOTE | 2017-06-26 07:07 | History & Physical Bridge Note ---
H&P Re-Evaluation Bridge Note: I have examined the patient, reviewed the History & Physical and in the interval since the performance of the History & Physical I have noted the following changes of clinical significance: No changes noted
[2017-06-26] MEDS ORDERED: PHENAZOPYRIDINE HCL 200 MG TAB PO PRN (07:15)
[2017-06-26] MEDS ORDERED: CIPROFLOXACIN 500 MG TAB PO SCH (07:15)
[2017-06-26] MEDS ORDERED: OXYCODONE/ACETAMINOPHEN 5-325 TAB PO PRN (07:15)
[2017-06-26] MEDS ORDERED: MoRPHine SULFATE 4 MG/ML 1 ML CARP\\VIAL IV PRN (07:15)
[2017-06-26] MEDS ORDERED: BELLADONNA/OPIUM SUPP 60 MG SUPP PR SCH (07:30)
[2017-06-26] MEDS ORDERED: BELLADONNA/OPIUM SUPP 60 MG SUPP PR ONE (09:12)
--- NOTE | 2017-06-26 09:14 | [facility] Operative Report ---
Operative Report Operative Date June 26, 2017. Pre-Operative Diagnosis BPH with retention Post-Operative Diagnosis Same Procedure(s) Performed Photovaporization of Prostate, Greenlight Laser Surgeon Martinez Estimated Blood Loss Minimal Findings Large prostate with large median lobe and lateral enlargement Drains [address] Anesthesia Type General Complication(s) none Disposition Recovery Room / PACU Indications Large prostate with retention and poor improvement. Patient discussed risks and benefits. Description of Procedure Patient was consented and brought back to the operating room. Patient was placed under anesthesia in the supine position and moved to the dorsal lithotomy position. Patient was prepped and draped in the regular sterile fashion. A time out was completed. A 30degree Cystoscope was placed into the bladder and the entire bladder was examined. The UO's were identified. The laser bridge was placed and the Greenlight laser placed. The entire prostate was examined and all major landmarks identified. Patient was noted to have a large median lobe as well as lateral enlargement. The 5 to 7 o'clock position was assessed. Resection with vaporization was taken from bladder neck to veru between this area to create a large channel. The resection was taken down to capsule. All bleeding was controlled with the coagulation setting. With the channel created, resection of the lateral lobe commenced first on the left. Vaporization began at the 1 o'clock postion and traveled down to the capsule. Resection ran from bladder neck to region of the veru. With the left side adequately vaporized, right vaporization commenced starting at 11 o'clock and vaporizing tissues down to capsule towards the channel. With lateral resection complete, the 12 o'clock position was assessed and vaporization was commenced. The resection beds were assessed and no further adenoma or tissues was visualized. Good resection to the capsule was noted. All bleeding was controlled with coagulation setting on the laser. The bladder was once more assessed. Debris was irrigated. The scope irrigated the area. No bleeding was appreciated. The bladder was left partially fully. The scope was removed. A [address] catheter was placed to irrigation. The patient was cleaned, aroused from anesthesia, and transferred to the pacu in stable condition having tolerated the procedure well with no complications. I was present and participated in all aspects of the procedure. The patient will be monitored in the PACU until transferred. I attest to the content of the Intraoperative Record and any orders documented therein. Any exceptions are noted below.
[2017-06-26 09:45] LABS: BASO ABS # 0.07 K/uL (0-0.2); HEMATOCRIT 38.5 % (42-52); IG# 0.03 K/uL (0.00-0.02); LYMPH % 24.2 %; LYMPH ABS # 1.73 K/uL (1.2-3.4); MEAN CELL VOLUME 90.8 fL (80-100); MEAN CORPUSCULAR HEMOGLOBIN 30.7 pg (25-34); MEAN CORPUSCULAR HGB CONC 33.8 g/dl (32-36); MEAN PLATELET VOLUME 10.8 fL (7.4-10.4); MONO % 4.2 %; NEUT % 63.2 %; NEUT ABS # 4.53 K/uL (1.4-6.5); PLATELET COUNT 205 K/uL (130-400); RED CELL DISTRIBUTION WIDTH CV 14.5 % (11.5-14.5); RED CELL DISTRIBUTION WIDTH SD 47.7 fL (36.4-46.3); WHITE BLOOD COUNT 7.16 K/uL (4.8-10.8)
[2017-06-26 10:05] LABS: ALBUMIN 3.3 gm/dl (3.4-5.0); CALCIUM 8.7 mg/dl (8.5-10.1); CREATININE 0.8 mg/dl (0.60-1.40); POTASSIUM 4.6 mmol/L (3.5-5.1); TOTAL PROTEIN 6.5 gm/dl (6.4-8.2)
--- NOTE | 2017-06-26 10:23 | Anesthesiology Progress Note ---
Anesthesia Post Op Note Date & Time June 26, 2017 at 10:22 Vital Signs Pain Intensity: 0 Vital Signs Past 12 Hours Date Time Temp Pulse Resp B/P (MAP) Pulse Ox O2 Delivery O2 Flow Rate FiO2 06/26/17 10:10 36.4 59 16 142/78 98 Nasal Cannula 2 06/26/17 10:00 61 16 144/82 98 Nasal Cannula 2 06/26/17 09:50 64 21 143/92 98 Oxymask 10 06/26/17 09:40 65 21 159/88 98 Oxymask 10 06/26/17 09:31 36.5 70 16 154/79 99 Oxymask 10 06/26/17 05:58 36.8 64 18 137/77 (97) 94 Room Air Notes Mental Status: alert / awake / arousable, participated in evaluation Pt Amnestic to Procedure: Yes Nausea / Vomiting: adequately controlled Pain: adequately controlled Airway Patency, RR, SpO2: stable & adequate BP & HR: stable & adequate Hydration State: stable & adequate Anesthetic Complications: no major complications apparent Awake, doing well, no complaints, VSS.
[2017-06-26 10:49] VITALS: BP 136/78; PULSE 58; TEMP 36.5; O2SAT 97
[2017-06-26 11:33] VITALS: BP 129/77; PULSE 60; TEMP 36.4; O2SAT 95
[2017-06-26] MEDS: SODIUM CHLORIDE 0.9% 1000ML 1,000 ML IV SCH ×2 (11:57→21:36)
[2017-06-26] MEDS: ALPRAZOLAM 0.5 MG TAB PO SCH (12:05)
[2017-06-26] MEDS: CAPTOPRIL 25 MG TAB PO SCH ×2 (12:08→21:22)
[2017-06-26] MEDS: CALCIUM 600MG + VIT D 400 IU TAB PO SCH (12:10)
[2017-06-26] MEDS: CARVEDILOL 3.125 MG TAB PO SCH ×2 (12:10→21:20)
[2017-06-26 15:51] VITALS: BP 142/81; PULSE 63; TEMP 37.2; O2SAT 96
[2017-06-26] MEDS: METFORMIN HCL 500 MG TABCR PO SCH (16:57)
[2017-06-26] MEDS ORDERED: PNEUMOCOCCAL POLYSACCHARIDES 25 MCG/0.5 ML VIAL/SYR IM. ONE (18:45)
[2017-06-26] MEDS ORDERED: PNEUMOCOCCAL ADMINISTRATION CHARGE ONE (18:45)
[2017-06-26 19:31] VITALS: BP 128/80; PULSE 59; TEMP 37; O2SAT 96
[2017-06-26] MEDS ORDERED: ATORVASTATIN 40 MG TAB PO SCH (21:00)
[2017-06-26] MEDS ORDERED: ESCITALOPRAM OXALATE 20 MG TAB PO SCH (21:00)
[2017-06-26] MEDS: DOCUSATE SODIUM 100 MG CAP PO SCH (21:20)
[2017-06-26 23:50] VITALS: BP 130/66; PULSE 60; TEMP 37; O2SAT 97
[2017-06-27 03:55] VITALS: BP 119/59; PULSE 55; TEMP 37.1; O2SAT 95
[2017-06-27 04:50] LABS: HEMATOCRIT 35.8 % (42-52); HEMOGLOBIN 12.1 g/dL (14.0-18.0); MEAN CELL VOLUME 89.9 fL (80-100); MEAN CORPUSCULAR HEMOGLOBIN 30.4 pg (25-34); MEAN CORPUSCULAR HGB CONC 33.8 g/dl (32-36); MEAN PLATELET VOLUME 10.7 fL (7.4-10.4); PLATELET COUNT 223 K/uL (130-400); RED CELL DISTRIBUTION WIDTH CV 14.2 % (11.5-14.5); RED CELL DISTRIBUTION WIDTH SD 46.6 fL (36.4-46.3); WHITE BLOOD COUNT 12.37 K/uL (4.8-10.8)
[2017-06-27 05:19] LABS: ALBUMIN 2.8 gm/dl (3.4-5.0); CALCIUM 8.1 mg/dl (8.5-10.1); CREATININE 0.9 mg/dl (0.60-1.40); POTASSIUM 3.8 mmol/L (3.5-5.1); TOTAL PROTEIN 6.3 gm/dl (6.4-8.2)
[2017-06-27 06:59] VITALS: BP 125/68; PULSE 54; TEMP 36.7; O2SAT 95
[2017-06-27] MEDS: CAPTOPRIL 25 MG TAB PO SCH (08:05)
[2017-06-27] MEDS: METFORMIN HCL 500 MG TABCR PO SCH ×2 (08:05→17:42)
[2017-06-27] MEDS: CARVEDILOL 3.125 MG TAB PO SCH (08:06)
[2017-06-27] MEDS: CALCIUM 600MG + VIT D 400 IU TAB PO SCH (08:06)
[2017-06-27] MEDS: DOCUSATE SODIUM 100 MG CAP PO SCH (08:07)
[2017-06-27] MEDS: ALPRAZOLAM 0.5 MG TAB PO SCH (08:08)
[2017-06-27] MEDS: SODIUM CHLORIDE 0.9% 1000ML 1,000 ML IV SCH ×2 (08:11→17:15)
--- NOTE | 2017-06-27 08:38 | Urology Progress Note ---
Progress Note Date of Service June 27, 2017. Subjective Pt evaluation today including: conversation w/ patient, chart review, lab review Pain: Denies Voiding: lowe catheter in place (patent, draining clear, yellow urine with slow CBI running) 72 yo male s/p GLTURP. Pt and RN report the pt had pain and blood around lowe catheter earlier this morning. She noted his catheter was pulled taught, and loosened it. Since that time, his pain and bleeding have improved. Lowe draining clear, yellow urine with slow CBI running. Pt reports he feels great this morning. Constitutional: No fever, No chills Respiratory: No shortness of breath Cardiovascular: No chest pain Abdomen: No pain, No nausea, No vomiting Male : No hematuria Heme: No abnormal bleeding/bruising Objective Vital Signs Date Time Temp Pulse Resp B/P (MAP) Pulse Ox O2 Delivery O2 Flow Rate FiO2 06/27/17 06:59 36.7 54 20 125/68 (87) 95 CPAP 06/27/17 04:00 CPAP 06/27/17 03:55 37.1 55 17 119/59 (79) 95 CPAP 06/26/17 23:59 CPAP 06/26/17 23:50 37.0 60 19 130/66 (87) 97 CPAP 06/26/17 20:00 Room Air 06/26/17 19:31 37.0 59 19 128/80 (96) 96 Room Air 06/26/17 16:00 Nasal Cannula 2.0 06/26/17 15:51 37.2 63 20 142/81 (101) 96 Nasal Cannula 2.0 06/26/17 11:33 36.4 60 20 129/77 (94) 95 Nasal Cannula 2.0 06/26/17 10:49 36.5 58 20 136/78 (97) 97 Nasal Cannula 2.0 06/26/17 10:49 36.5 58 20 136/78 (97) 97 06/26/17 10:25 36.4 06/26/17 10:20 57 16 136/79 97 Nasal Cannula 2 06/26/17 10:10 36.4 59 16 142/78 98 Nasal Cannula 2 06/26/17 10:00 61 16 144/82 98 Nasal Cannula 2 06/26/17 09:50 64 21 143/92 98 Oxymask 10 06/26/17 09:40 65 21 159/88 98 Oxymask 10 06/26/17 09:31 36.5 70 16 154/79 99 Oxymask 10 Physical Exam General Appearance: no apparent distress Eyes: normal inspection ENT: hearing grossly normal Neck: no JVD Respiratory/Chest: no respiratory distress, no accessory muscle use Cardiovascular: no JVD Extremities: normal inspection Neurologic/Psychiatric: alert, normal mood/affect, oriented x 3 Skin: normal color Laboratory Results Last 24 Hours Test 06/26/17 09:36 06/26/17 09:47 06/26/17 11:33 06/26/17 16:34 White Blood Count 7.16 K/uL Red Blood Count 4.24 M/uL Hemoglobin 13.0 g/dL Hematocrit 38.5 % Mean Corpuscular Volume 90.8 fL Mean Corpuscular Hemoglobin 30.7 pg Mean Corpuscular Hemoglobin Concent 33.8 g/dl Platelet Count 205 K/uL Mean Platelet Volume 10.8 fL Neutrophils (%) (Auto) 63.2 % Lymphocytes (%) (Auto) 24.2 % Monocytes (%) (Auto) 4.2 % Eosinophils (%) (Auto) 7.0 % Basophils (%) (Auto) 1.0 % Neutrophils # (Auto) 4.53 K/uL Lymphocytes # (Auto) 1.73 K/uL Monocytes # (Auto) 0.30 K/uL Eosinophils # (Auto) 0.50 K/uL Basophils # (Auto) 0.07 K/uL RDW Standard Deviation 47.7 fL RDW Coefficient of Variation 14.5 % Immature Granulocyte % (Auto) 0.4 % Immature Granulocyte # (Auto) 0.03 K/uL Sodium Level 141 mmol/L Potassium Level 4.6 mmol/L Chloride Level 109 mmol/L Carbon Dioxide Level 26 mmol/L Anion Gap 5.0 mmol/L Blood Urea Nitrogen 34 mg/dl Creatinine 0.80 mg/dl Est Creatinine Clear Calc Drug Dose 95.8 ml/min Estimated GFR () 103.4 Estimated GFR (Non- 89.2 BUN/Creatinine Ratio 42.7 Random Glucose 169 mg/dl Calcium Level 8.7 mg/dl Total Bilirubin 0.4 mg/dl Aspartate Amino Transf (AST/SGOT) 20 U/L Alanine Aminotransferase (ALT/SGPT) 31 U/L Alkaline Phosphatase 110 U/L Total Protein 6.5 gm/dl Albumin 3.3 gm/dl Globulin 3.2 gm/dl Albumin/Globulin Ratio 1.0 Hepatitis C Antibody Screen NEG Bedside Glucose 186 mg/dl 234 mg/dl 377 mg/dl Test 06/26/17 21:02 06/27/17 04:44 06/27/17 07:18 Bedside Glucose 264 mg/dl 119 mg/dl White Blood Count 12.37 K/uL Red Blood Count 3.98 M/uL Hemoglobin 12.1 g/dL Hematocrit 35.8 % Mean Corpuscular Volume 89.9 fL Mean Corpuscular Hemoglobin 30.4 pg Mean Corpuscular Hemoglobin Concent 33.8 g/dl RDW Standard Deviation 46.6 fL RDW Coefficient of Variation 14.2 % Platelet Count 223 K/uL Mean Platelet Volume 10.7 fL Sodium Level 140 mmol/L Potassium Level 3.8 mmol/L Chloride Level 108 mmol/L Carbon Dioxide Level 27 mmol/L Anion Gap 5.0 mmol/L Blood Urea Nitrogen 22 mg/dl Creatinine 0.90 mg/dl Est Creatinine Clear Calc Drug Dose 85.2 ml/min Estimated GFR () 98.5 Estimated GFR (Non- 85.0 BUN/Creatinine Ratio 24.1 Random Glucose 112 mg/dl Calcium Level 8.1 mg/dl Total Bilirubin 0.7 mg/dl Aspartate Amino Transf (AST/SGOT) 13 U/L Alanine Aminotransferase (ALT/SGPT) 25 U/L Alkaline Phosphatase 103 U/L Total Protein 6.3 gm/dl Albumin 2.8 gm/dl Globulin 3.5 gm/dl Albumin/Globulin Ratio 0.8 Assessment and Plan POD #1 /p GLTURP AFVSS. Pt doing well from perspective this morning. Will clamp CBI. Plan for d/c home later this afternoon with lowe catheter. TOV scheduled for . F/u with Dr. Henriquez on 07/10. During our discussion this morning regarding post-op activity limitations, the pt did mention that he falls once per week at home. I have ordered a PT/OT evaluation this morning, and will have him f/u with his PCP in 1 week for further evaluation. administrative services manager eval also ordered in the event the pt needs home PT. Discharge planning: home
[2017-06-27] MEDS ORDERED: CIPR-255 PO (08:40)
--- NOTE | 2017-06-27 08:46 | Discharge Instructions ---
Discharge Instructions Date of Service June 27, 2017. Admission Reason for Admission: Benign Prostatic Hyperplasia W/Urinary Obstruction Discharge Discharge Diagnosis / Problem: Benign Prostatic Hypertrophy with urinary obstruction Discharge Goals Goal(s): Decrease discomfort, Improve disease control, Therapeutic intervention Activity Recommendations Activity Limitations: as noted below Lifting Limitations: no more than 25 pounds (x 2 weeks ) Exercise/Sports Limitations: rest today, gradually increase as tolerated, until after follow-up appointment (Light activity x 2 weeks. No heavy lifting or exercise. ABSOLUTELY NO RIDING LAWN MOWERS OR USE OF CHAINSAWS!) May Resume Sexual Activity: after follow-up appointment Shower/Bathe: no limitations (OK to shower. No tub baths while lowe catheter is in place. ) Driving or Machine Use: resume 3 days after discharge . Instructions / Follow-Up Instructions / Follow-Up 1. You may resume taking Aspirin in 3 days if urine is clear. 2. You have been prescribed the antibiotic Ciprofloxacin. Finish all as directed. 3. Follow-up with your primary care provider in 1 week to discuss frequent falls. 4. Follow-up with urology on 07-03-17 at 11:00am for lowe catheter removal. Please call our office at [phone] if you need to reschedule for any reason. 5. Follow-up with Dr. Henriquez on 07-10-17 at 9:45am for post-op visit. Please call our office at [phone] if you need to reschedule for any reason. Current Hospital Diet Patient's current hospital diet: Regular Diet Discharge Diet Recommended Diet: Diabetes Type 2 Diet Procedures Procedures Performed: Photovaporization of Prostate, Greenlight Laser Pending Studies Studies pending at discharge: yes List of pending studies: prostate tissue Laboratory Results Hemoglobin A1c Test 04/23/17 07:21 Range/Units Estimated Average Glucose 148 mg/dl Hemoglobin A1c 6.8 H 4.5-5.6 % Lipid Panel Test 04/23/17 07:21 Range/Units Triglycerides Level 97 0-150 mg/dl Cholesterol Level 126 0-200 mg/dl HDL Cholesterol 70 mg/dl Cholesterol/HDL Ratio 1.8 LDL Cholesterol, Calculated 37 mg/dl Medical Emergencies . Who to Call and When: Medical Emergencies: If at any time you feel your situation is an emergency, please call 911 immediately. . Non-Emergent Contact Non-Emergency issues call your: Urologist Call Non-Emergent contact if: temperature is above 101.5, your pain is not controlled, your pain is worsening, your pain is unusual for you, your pain is concerning you, you have any medication questions . . "Provider Documentation" section prepared by Radha Gregg. .
[2017-06-27] MEDS ORDERED: MULTIVITAMIN TAB PO SCH (09:00)
[2017-06-27] MEDS ORDERED: ASCORBIC ACID 500 MG TAB PO SCH (09:00)
[2017-06-27] MEDS ORDERED: CIPROFLOXACIN 500 MG TAB PO SCH (09:00)
[2017-06-27 10:58] VITALS: BP 135/61; PULSE 67; TEMP 37.4; O2SAT 96
[2017-06-27 14:20] VITALS: BP 135/61; PULSE 66; O2SAT 97
--- NOTE | 2017-06-27 15:31 | Discharge Summary ---
Discharge Summary Date of Service June 27, 2017. Admission Date/Reason June 26, 2017 at 10:55 Benign Prostatic Hyperplasia W/Urinary Obstruction. Discharge Date/Disposition June 27, 2017 Home Diagnosis Principal Diagnosis: Benign Prostatic Hyperplasia with Urinary Obstruction Procedure(s) Performed Photovaporization of Prostate, Greenlight Laser Consultations PT/OT evaluation Medication Reconciliation New Medications: Ciprofloxacin Hcl (Cipro) 500 Mg Tab 500 MG PO BID, #10 TAB 0 Refills Continued Medications: Alprazolam (Xanax) 0.5 Mg Tab 0.5 MG PO QAM Ascorbic Acid (Sm Vitamin C) 500 Mg Tab 500 MG PO QAM Atorvastatin (Lipitor) 80 Mg Tab 80 MG PO HS, TAB Calcium Carbonate-Vitamin D (Calcium 600 + D) 1 Tab Tab 1 TAB PO QAM Captopril (Captopril) 100 Mg Tab 200 MG PO BID Carvedilol (Coreg) 3.125 Mg Tab 3.125 MG PO BID, TAB Escitalopram Oxalate (Lexapro) 20 Mg Tab 20 MG PO QPM Finasteride (Proscar) 5 Mg Tab 5 MG PO QAM Glipizide (Glipizide Er) 5 Mg Tab 2 TABS PO QAM Metformin Hcl (Glucophage Ext Rel) 1,000 Mg Tab 1000 MG PO BID, TAB Multivitamin (Multivitamin) Tab 1 TAB PO QAM, TAB Discontinued Medications: Aspirin (Aspirin Ec) 81 Mg Tab 81 MG PO QAM Silodosin (Rapaflo) 8 Mg Cap 1 CAP PO QAM Admission Physical Exam PCP 1 week for frequent falls. Hospital Course 72 yo male admitted for Photovaporization of Prostate, Greenlight Laser. AFVSS. Pt doing well from perspective this morning. Will clamp CBI. Plan for d/c home later this afternoon with lowe catheter. TOV scheduled for . F/u with Dr. Henriquez on 07/10. During our discussion this morning regarding post-op activity limitations, the pt did mention that he falls once per week at home. I have ordered a PT/OT evaluation this morning, and will have him f/u with his PCP in 1 week for further evaluation. consumer services advisor eval also ordered in the event the pt needs home PT. Discharge Instructions Please refer to the electronic Patient Visit Report (Discharge Instructions) for additional information. Additional Copies To Lucien Woodruff M.D.
[2017-06-27 16:08] VITALS: BP 140/71; PULSE 64; TEMP 37.5; O2SAT 94
[2017-06-27 18:20] VITALS: BP 140/71; PULSE 64; TEMP 37.5; O2SAT 94
== END 2017-06-27 18:47 | disposition home or self-care (01) | DRG 714 ==
LOC: C.ACU 05:32 → C.2E 07:20 → UNDOADMIN 07:20 → ENRESERV 10:23 → C.2E 10:55
PROVIDERS: ADMIT Urology; ATTEND Urology
PROC: 0V508ZZ Destruction of Prostate, Via Natural or Artificial Opening Endoscopic (ICD-10-PCS; principal; 2017-06-26 07:30)
DX: N40.1 Benign prostatic hyperplasia with lower urinary tract symptoms (principal); R33.9 Retention of urine, unspecified; R93.8 Abnormal findings on diagnostic imaging of other specified body structures; E11.9 Type 2 diabetes mellitus without complications; E78.5 Hyperlipidemia, unspecified; R74.8 Abnormal levels of other serum enzymes; N52.9 Male erectile dysfunction, unspecified; R15.9 Full incontinence of feces; H91.90 Unspecified hearing loss, unspecified ear; I10 Essential (primary) hypertension; G47.33 Obstructive sleep apnea (adult) (pediatric)

== ENCOUNTER 2020-04-23 12:33 | Inpatient (IN) ==
[2020-04-23] MEDS ORDERED: METOCLOPRAMIDE HCL INJ 5 MG/ML 2 ML VIAL IV STA (13:23)
[2020-04-23] MEDS ORDERED: FAMOTIDINE 20MG IV PUSH 20 MG/5 ML SYR IV STA (13:23)
[2020-04-23] MEDS ORDERED: diphenhydrAMINE 50 MG/ML VIAL IV STA (13:23)
[2020-04-23] MEDS ORDERED: SODIUM CHLORIDE 0.9% 1000ML 1,000 ML IV ONE (13:23)
--- NOTE | 2020-04-23 13:50 | Emergency Department Note ---
Impression & Plan CVA (cerebrovascular accident), Vertigo, Nausea and vomiting ED Provider Note NAME: BAR SMITH III AGE: 75 SEX: M ARRIVES VIA: Walk-In INFORMANT: Patient, ED PROVIDER(S): Raimundo Smith MD CHIEF COMPLAINT: Vertigo, n/v. PLAN: Disposition: Admit MEDICAL DECISION MAKING: The patient is a pleasant 75-year-old gentleman with a past medical history of hypertension, hyperlipidemia, renal cell carcinoma, CAD who presents to the emergency department accompanied by his with persistent vertigo since noon yesterday where he was apparently outside in could not keep his balance and had to crawl back into his wheelchair inside. Apparently he was able to get around slowly with his cane yesterday afternoon and evening but this morning was only able to crawl out of bed because he felt to dizzy/vertiginous to stand up and did develop nausea and vomiting. Prior to onset of the symptoms he was in his normal state of health and denied fevers, chills, cough, congestion, symptoms. Denies chest pain, shortness of breath, known COVID-19 exposures. On arrival the patient is uncomfortable, fatigued appearing but no acute distress, afebrile with stable vital signs. He appears clinically dry. He has easily inducible vertigo when sitting up and he immediately has nausea and vomiting, which resolves upon lying supine. He has no additional focal neurologic deficits otherwise. EKG without overt acute ischemia. Chest x-ray without acute cardiopulmonary process. WBC and platelets within normal limits. H/H 13.8/41.9 similar to prior values. Chemistry without metabolic acidosis. BUN/creatinine> 30 consistent with the patient's clinically dry appearance. Electrolytes and LFTs unremarkable. Troponin negative/undetectable. LFTs unremarkable. Lipase within normal limits. UA without convincing evidence of infection. Covid-19 RNA, AUNDREA was negative. CT head and CTA head and neck performed. Findings show old right parieto-occip ital infarct and old bilateral cerebellar infarcts. However, right cerebellar infarct was not present in 2016. There is mild multifocal narrowing within the left M2 segments otherwise no severe narrowing or occlusion of large vessels. Upon reevaluation patient was feeling somewhat improved after IV fluid hydration, Reglan, Pepcid, Benadryl. He was able to rest comfortably per his which he was unable to do before. I did review the results and they were in agreement with plan for admission for further evaluation and management. At this time is unclear the chronicity of the patient's new right cerebellar infarct findings however they may be related to his posterior symptoms which brought him to the hospital today. Case was d/w Dr. Villaseñor, [facility] [place] hospitalist who will evaluate the patient for admission. Triage Nursing notes reviewed and agree them. Prior medical records reviewed Vital Signs: reviewed and remarkable for no significant abnormalities Differential diagnosis: Benign positional vertigo, dehydration, hypovolemia, anemia, tumor, infection, hypoglycemia, electrolyte abnormalities, cardiac sources, intracerebral event, toxicologic, neurologic, as well as other pathologies. ER treatment provided: See below. Diagnostics interpreted by me: ECG: Normal sinus rhythm, 67 bpm, no ectopy, LVH, no overt ST elevation or depression, QTC 443, QRS 96. Cardiac Monitoring: An order for continuous cardiac monitoring was placed and demonstrated Normal sinus rhythm, 67 bpm, no ectopy. Laboratory studies: See below Imaging studies: XR chest 1V portable CLINICAL HISTORY: Atypical chest pain COMPARISON STUDY: No previous studies for comparison. FINDINGS: The heart is mildly enlarged. There is aortic tortuosity/ectasia. There is mild interstitial prominence but no evidence of overt failure. There is no evidence of focal pulmonary consolidation. There are no significant pleural effusions. IMPRESSION: 1. Mild interstitial prominence but no evidence of overt failure 2. No evidence of focal pulmonary consolidation ACT 112: Negative or not required by law. -- CT head/brain wo con CLINICAL HISTORY: Vertigo, nausea, vomiting. Possible stroke COMPARISON STUDY: July 2015 TECHNIQUE: Axial CT of the brain is performed from the vertex to the skull base. IV contrast was not administered for this examination. A dose lowering technique was utilized adhering to the principles of ALARA. CT DOSE: FINDINGS: No intra or extra-axial mass lesions are visualized. There is no CT evidence of acute cortical infarction. There is no evidence of midline shift. There is no acute hemorrhage. No calvarial fractures are visualized. There are moderate white matter hypodensities likely on a small vessel basis. There is an old right parieto-occipital infarct. There is an old left cerebellar infarct. There is an old right cerebellar infarct which was not present on the preceding study. There is no evidence of pathologic ventricular dilatation. There is right maxillary sinus mucosal disease IMPRESSION: 1. No acute intracranial findings 2. Old right parieto-occipital infarct and old bilateral cerebellar infarcts. The right cerebellar infarct was not present in 2016 ACT 112: Negative or not required by law. Electronically signed by: Magno Castro M.D. 04/23/2020 3:20 PM - HEAD & NECK CTA HISTORY: vertigo, n/v TECHNIQUE: Multiaxial CT images of the head were performed following the intravenous administration of contrast to evaluate the major cerebral vessels. Multiaxial CT images of the neck were also performed following the intravenous administration of contrast to evaluate the major cervical vessels. Maximum intensity projection images were also obtained. A dose lowering technique was utilized adhering to the principles of ALARA. COMPARISON: None. FINDINGS: There is no mass, hematoma, midline shift, or acute infarct. Visualized intracranial internal carotid arteries, distal vertebral arteries, and basilar artery are widely patent. There is no significant stenosis, occlusion, or aneurysm seen within the bilateral ACAs, right MCA, or chop saw operator. Mild multifocal narrowing within left M2 segments. Mild calcified plaque within the bilateral carotid siphons. Mild mucosal thickening in the right maxillary sinus. Moderate left mastoid effusion. Old bilateral cerebellar infarcts. There is also an old right parietal infarct. The major dural venous sinuses appear patent. There is a persistent left posterior circulation. The aortic arch and proximal great vessels are widely patent. There is no significant stenosis, occlusion, or dissection identified within the bilateral common carotid, internal carotid, or vertebral arteries. IMPRESSION: 1. Mild multifocal narrowing within the left M2 segments. Otherwise, no significant centimeters stenosis, occlusion, or aneurysm within the remaining [place]. 2. No significant stenosis, occlusion, or dissection identified within the carotid or vertebral arteries. ACT 112: Negative or not required by law. Electronically signed by: Alfonso Adamson M.D. 04/23/2020 3:32 PM Consultation(s): Case was d/w Dr. Villaseñor, [facility] [place] hospitalist who will evaluate the patient for admission. HPI: The patient is a pleasant 75-year-old gentleman with a past medical history of hypertension, hyperlipidemia, renal cell carcinoma, CAD who presents to the emergency department accompanied by his with persistent vertigo since noon yesterday where he was apparently outside in could not keep his balance and had to crawl back into his wheelchair inside. Apparently he was able to get around slowly with his cane yesterday afternoon and evening but this morning was only able to crawl out of bed because he felt to dizzy/vertiginous to stand up and did develop nausea and vomiting. Prior to onset of the symptoms he was in his normal state of health and denied fevers, chills, cough, congestion, sympto Denies chest pain, shortness of breath, known COVID-19 exposures. ROS: See above HPI for pertinent positives & negatives. A total of 10 systems reviewed and were otherwise negative. PAST MEDICAL HISTORY:See Below PAST SURGICAL HISTORY:See Below FAMILY HISTORY:See Below SOCIAL HISTORY:See Below HOME MEDICATIONS:See Below ALLERGIES:See Below VITALS:See Below PHYSICAL EXAMINATION: GENERAL: Awake, alert, uncomfortable-appearing, in no distress HENT: Normocephalic, atraumatic. Oropharynx with dry mucous membranes and otherwise unremarkable. EYES: Normal conjunctiva. Sclera non-icteric. EOMI. No nystamgus. PEARRL. NECK: Supple. No nuchal rigidity. FROM. No JVD. RESPIRATORY: Clear to auscultation. CARDIAC: Regular rate, normal rhythm. Extremities warm and well perfused. Pulses equal. ABDOMEN: Soft, non-distended. No tenderness to palpation. No rebound or guarding. No masses. RECTAL: Deferred. MUSCULOSKELETAL: Chest examination reveals no tenderness. The back is symmetrical on inspection without obvious abnormality. There is no CVA tenderness to palpation. No joint edema. LOWER EXTREMITIES: Calves are equal size bilaterally and non-tender. No edema. No discoloration. NEURO: Normal sensorium. CN II-XII grossly intact. 5/5 strength and SILT x 4 extremities. Intact finger to nose. Vertigo easily induced by sitting up from supine position even at minimal inclination of 15 degrees. SKIN: No rash or jaundice noted. 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 Hyperlipidemia Hypertension Hypertension Nephrolithiasis Obesity Obstructive sleep apnea Pulmonary nodule Right knee DJD Sensorineural hearing loss (SNHL) of both ears Sleep apnea CPAP Stress incontinence, male Transient ischemic attack (TIA) S/P KNEE SURGERY 7 YEARS AGO (NO CURRENT PROBLEMS/COULD NOT READ AT TIME OF INJURY) Urge incontinence of urine Surgical History History of cardiac cath 25 YEARS AGO (NO STENTS) History of cataract surgery RT/LEFT History of colonoscopy History of cystoscopy History of hand surgery RT HAND TENDON REPAIR (3 TOTAL SURGERIES) History of kidney surgery RT KIDNEY TUMOR REMOVED History of repair of rotator cuff RT ARM X 3 History of tonsillectomy History of tooth extraction History of total knee replacement RT KNEE+ANTIBIOTIC SPACER THEN REVISION) Family History Mother Family hx of colon cancer Social History Smoking Status: Never smoker Second Hand Exposure: No; Hx Alcohol Use: Yes Alcohol type: beer Alcohol Intake Frequency: Monthly or Less Hx Substance Use: No Preferred Language: Kyrgyz Communication Ability: Impaired Visual Impairment: No Limitations Hearing Ability: Use of Hearing Aid Orthopaedic Surgeon Required: No Beliefs That Will Affect Care: None Current Living Situation: Spouse current occupational status: retired Feels Safe at Home: Yes Seatbelt Use: always Sunscreen Use: No Assistive Devices: CPAP, Glasses and Hearing Aid - Bilateral Allergies Allergies Allergy/AdvReac Type Severity Reaction Status Date / Time No Known Drug Allergies Allergy Verified 04/23/20 14:15 Home Meds Home Medications Medication Instructions Recorded Confirmed Myrbetriq 50 mg PO DAILY 09/17/18 04/23/20 aspirin 81 mg PO QAM 09/17/18 04/23/20 multivitamin 1 tab PO QAM 09/17/18 04/23/20 pen needle, diabetic 32 gauge x ea 10/23/18 03/30/20 5/32" loperamide 2 mg capsule 2 mg PO BID cap 11/21/19 04/23/20 Previous Rx's Medication Instructions Recorded OneTouch Delica Lancets 33 gauge #200 ea NS 11/22/18 captopril 100 mg tablet 200 mg PO BID #360 tab 05/23/19 carvedilol 3.125 mg tablet 3.125 mg PO BID #180 tab 05/23/19 insulin aspart U-100 100 unit/mL 50 units SUBCUT DAILY 90 Days #45 08/04/19 (3 mL) subcutaneous pen ml atorvastatin 80 mg tablet 80 mg PO HS #90 tab 08/15/19 escitalopram oxalate 20 mg tablet 20 mg PO QPM #90 tab 09/30/19 finasteride 5 mg tablet 5 mg PO DAILY #90 tab 09/30/19 insulin glargine 100 unit/mL (3 24 unit SUBCUT QAM #30 ml 01/21/20 mL) subcutaneous pen metformin 500 mg tablet 1,000 mg PO BID #360 tab 03/09/20 Results & Data (ED) Vital Signs Vital Signs - 24 hr 04/23/20 12:38 04/23/20 12:49 04/23/20 13:41 Temperature 36.5 C Temperature Source Temporal Artery Scan Pulse Rate 68 Pulse Rate [Left Apical] 66 63 Pulse Rhythm Regular Pulse Rhythm [Left Apical] Regular Regular Pulse Strength Normal Pulse Strength [Left Apical] Normal Normal Respiratory Rate 18 21 22 Respiratory Effort / Characteristics Non-Labored Spontaneous Non-Labored Spontaneous Non-Labored Spontaneous Respiratory Depth Normal Normal Normal Respiratory Pattern Regular Regular Regular Blood Pressure 161/96 H Blood Pressure [Right Arm] 174/90 H 159/85 H Blood Pressure Mean 117 Blood Pressure Mean [Right Arm] 118 109 Blood Pressure Position Sitting Blood Pressure Position [Right Arm] Lying Lying Pulse Oximetry 97 98 97 Oxygen Delivery Method Room Air Room Air Room Air Sepsis Recent Fever Within 48 Hours No Sepsis New/Unexplained Change in Mental Status N/A Sepsis Action Taken by Nursing No Action Required 04/23/20 14:50 04/23/20 15:45 04/23/20 16:45 Temperature Temperature Source Pulse Rate Pulse Rate [Left Apical] 70 62 60 Pulse Rhythm Pulse Rhythm [Left Apical] Regular Regular Regular Pulse Strength Pulse Strength [Left Apical] Normal Normal Normal Respiratory Rate 17 17 20 Respiratory Effort / Characteristics Non-Labored Spontaneous Non-Labored Spontaneous Non-Labored Spontaneous Respiratory Depth Normal Normal Normal Respiratory Pattern Regular Regular Regular Blood Pressure Blood Pressure [Right Arm] 150/81 H 147/78 H 181/87 H Blood Pressure Mean Blood Pressure Mean [Right Arm] 104 101 118 Blood Pressure Position Blood Pressure Position [Right Arm] Lying Lying Lying Pulse Oximetry 97 96 98 Oxygen Delivery Method Room Air Room Air Room Air Sepsis Recent Fever Within 48 Hours Sepsis New/Unexplained Change in Mental Status Sepsis Action Taken by Nursing 04/23/20 18:00 Temperature Temperature Source Pulse Rate Pulse Rate [Left Apical] 56 L Pulse Rhythm Pulse Rhythm [Left Apical] Regular Pulse Strength Pulse Strength [Left Apical] Normal Respiratory Rate 18 Respiratory Effort / Characteristics Non-Labored Spontaneous Respiratory Depth Normal Respiratory Pattern Regular Blood Pressure Blood Pressure [Right Arm] 149/73 H Blood Pressure Mean Blood Pressure Mean [Right Arm] 98 Blood Pressure Position Blood Pressure Position [Right Arm] Lying Pulse Oximetry 97 Oxygen Delivery Method Room Air Sepsis Recent Fever Within 48 Hours Sepsis New/Unexplained Change in Mental Status Sepsis Action Taken by Nursing Laboratory Data Attestation: I reviewed the patient's lab results. Result diagrams: 04/23/20 Unknown 04/23/20 13:23 Lab Results 04/23/20 04/23/20 04/23/20 Range/Units 13:23 15:00 16:53 Sodium 144 (136-145) mmol/L Potassium 4.3 (3.5-5.1) mmol/L Chloride 114 H (98-107) mmol/L Carbon Dioxide 24 (21-32) mmol/L Anion Gap 6.0 (3-11) BUN 29 H (7-18) mg/dl Creatinine 0.93 (0.6-1.4) mg/dl Est Cr Clr Drug Dosing 82.7 ml/min Est GFR ( Amer) 92.7 Est GFR (Non-Af Amer) 80.0 BUN/Creatinine Ratio 31.4 H (10-20) Glucose 121 H (70-99) mg/dl Calcium 8.6 (8.5-10.1) mg/dl Phosphorus 2.6 (2.5-4.9) mg/dl Magnesium 2.3 (1.8-2.4) mg/dl Total Bilirubin 0.6 (0.2-1) mg/dl Direct Bilirubin 0.2 (0-0.2) mg/dl AST 20 (15-37) U/L ALT 32 (12-78) U/L Alkaline Phosphatase 89 (45-117) U/L Troponin I < 0.015 (0-0.045) ng/ml Total Protein 7.3 (6.4-8.2) gm/dl Albumin 3.6 (3.4-5.0) gm/dl Globulin 3.7 (2.5-4.0) gm/dl Albumin/Globulin Ratio 1.0 (0.9-2) Lipase 195 (73-393) U/L TSH 1.770 (0.300-4.500) uIu/ml Urine Color Yellow Urine Appearance Clear (Clear) Urine pH 6.5 (4.5-7.5) Ur Specific [place] 1.023 (1.000-1.030) Urine Protein 1+ H (Negative) Urine Glucose (UA) Negative (Negative) Urine Ketones Trace H (Negative) Urine Blood Negative (Negative) Urine Nitrite Negative (Negative) Urine Bilirubin Negative (Negative) Urine Urobilinogen Negative (Negative) Ur Leukocyte Esterase Negative (Negative) Urine WBC (Auto) 1-5 (0-5) /hpf Urine RBC (Auto) 0-4 (0-4) /hpf U Hyaline Cast (Auto) 1-5 (0-5) /lpf U Epithel Cells (Auto) 5-10 H (0-5) /lpf Urine Bacteria (Auto) Negative (Negative) COVID-19 Eval Order Covid19 IDNow atMMIC SARS-CoV-2, RNA, NAAT (NEGATIVE) 04/23/20 Range/Units 16:53 Sodium (136-145) mmol/L Potassium (3.5-5.1) mmol/L Chloride (98-107) mmol/L Carbon Dioxide (21-32) mmol/L Anion Gap (3-11) BUN (7-18) mg/dl Creatinine (0.6-1.4) mg/dl Est Cr Clr Drug Dosing ml/min Est GFR ( Amer) Est GFR (Non-Af Amer) BUN/Creatinine Ratio (10-20) Glucose (70-99) mg/dl Calcium (8.5-10.1) mg/dl Phosphorus (2.5-4.9) mg/dl Magnesium (1.8-2.4) mg/dl Total Bilirubin (0.2-1) mg/dl Direct Bilirubin (0-0.2) mg/dl AST (15-37) U/L ALT (12-78) U/L Alkaline Phosphatase (45-117) U/L Troponin I (0-0.045) ng/ml Total Protein (6.4-8.2) gm/dl Albumin (3.4-5.0) gm/dl Globulin (2.5-4.0) gm/dl Albumin/Globulin Ratio (0.9-2) Lipase (73-393) U/L TSH (0.300-4.500) uIu/ml Urine Color Urine Appearance (Clear) Urine pH (4.5-7.5) Ur Specific [place] (1.000-1.030) Urine Protein (Negative) Urine Glucose (UA) (Negative) Urine Ketones (Negative) Urine Blood (Negative) Urine Nitrite (Negative) Urine Bilirubin (Negative) Urine Urobilinogen (Negative) Ur Leukocyte Esterase (Negative) Urine WBC (Auto) (0-5) /hpf Urine RBC (Auto) (0-4) /hpf U Hyaline Cast (Auto) (0-5) /lpf U Epithel Cells (Auto) (0-5) /lpf Urine Bacteria (Auto) (Negative) COVID-19 Eval Order SARS-CoV-2, RNA, NAAT NEGATIVE (NEGATIVE) Administered Medications Discontinued Medications Clopidogrel Bisulfate (Clopidogrel Bisulfate 300 Mg Tab) 300 mg PO NOW ONE Stop: 04/23/20 18:33 Last Admin: 04/23/20 18:45 Dose: 300 mg Documented by: [id number] Diphenhydramine HCl (Diphenhydramine 50 Mg/Ml Vial) 25 mg IV NOW STA Stop: 04/23/20 13:24 Last Admin: 04/23/20 13:37 Dose: 25 mg Documented by: [id number] Sodium Chloride (Nss 1000ml) 1,000 mls @ 999 mls/hr IV .Q1H1M ONE Stop: 04/23/20 14:23 Last Infusion: 04/23/20 14:51 Dose: 0 mls/hr Documented by: [id number] Admin: 04/23/20 13:37 Dose: 999 mls/hr Documented by: [id number] Famotidine (Pepcid 20mg Iv Push) 20 mg in 5 mls @ 2.5 mls/min IV NOW STA Stop: 04/23/20 13:24 Last Admin: 04/23/20 13:37 Dose: 2.5 mls/min Documented by: [id number] Ioversol (Optiray 320 125ml) 119 ml IV ONCE ONE Stop: 04/23/20 15:07 Last Admin: 04/23/20 15:06 Dose: 119 ml Documented by: [id number] Metoclopramide HCl (Metoclopramide Hcl Inj 5 Mg/Ml 2 Ml Vial) 10 mg IV NOW STA Stop: 04/23/20 13:24 Last Admin: 04/23/20 13:37 Dose: 10 mg Documented by: [id number] Discharge Plan Visit Data Chief Complaint: Vertigo Stated Complaint: DIZZINESS ED Provider: Raimundo Smith Discharge Problem: CVA (cerebrovascular accident), Vertigo, Nausea and vomiting Patient Disposition: Admitted As Inpatient Discharge Instructions Interventions: ED Discharge Assessment Last Done: 04/23/20 21:28 Discharge Problem: CVA (cerebrovascular accident) Qualifiers: CVA mechanism: unspecified Qualified Code(s): I63.9 - Cerebral infarction, unspecified Nausea and vomiting Qualifiers: Vomiting type: unspecified Vomiting Intractability: unspecified Qualified Code(s): R11.2 - Nausea with vomiting, unspecified
[2020-04-23 13:57] LABS: Basophils # (auto) 0.04 K/uL (0-0.2); Basophils % (auto) 0.5 %; Eosinophils # (auto) 0.59 K/uL (0-0.5); Eosinophils % (auto) 7.7 %; Hematocrit (blood only) 41.9 % (42-52); Hemoglobin 13.8 g/dL (14.0-18.0); Immature Granulocytes # (auto) 0.03 K/uL (0.00-0.02); Immature Granulocytes % (auto) 0.4 %; Lymphocytes # (auto) 1.64 K/uL (1.2-3.4); Lymphocytes % (auto) 21.3 %; Mean Corpuscular Hemoglobin 30.6 pg (25-34); Mean Corpuscular Hgb Conc 32.9 g/dL (32-36); Mean Corpuscular Volume 92.9 fL (80-100); Mean Platelet Volume 10.8 fL (7.4-10.4); Monocytes # (auto) 0.51 K/uL (0.11-0.59); Monocytes % (auto) 6.6 %; Neutrophils % (auto) 63.5 %; Platelet Count 287 K/uL (130-400); RDW Coefficient of Variation 14.3 % (11.5-14.5); RDW Standard Deviation 48.8 fL (36.4-46.3); Red Blood Count 4.51 M/uL (4.7-6.1); White Blood Count 7.71 K/uL (4.8-10.8)
[2020-04-23 14:02] LABS: Alanine Aminotransferase 32 U/L (12-78); Albumin Level 3.6 gm/dl (3.4-5.0); Aspartate Aminotransferase 20 U/L (15-37); BUN Creatinine Ratio 31.4 (10-20); Bilirubin Direct 0.2 mg/dl (0-0.2); Blood Urea Nitrogen 29 mg/dl (7-18); Calcium 8.6 mg/dl (8.5-10.1); Carbon Dioxide 24 mmol/L (21-32); Chloride 114 mmol/L (98-107); Creatinine Clr Calc Pharmacy 82.7 ml/min; Est GFR (African American) 92.7; Glucose 121 mg/dl (70-99); Lipase 195 U/L (73-393); Magnesium 2.3 mg/dl (1.8-2.4); Potassium 4.3 mmol/L (3.5-5.1); Sodium 144 mmol/L (136-145)
[2020-04-23 14:11] LABS: Alkaline Phosphatase 89 U/L (45-117); Bilirubin,Total 0.6 mg/dl (0.2-1); Globulin 3.7 gm/dl (2.5-4.0); Phosphorus 2.6 mg/dl (2.5-4.9); Total Protein 7.3 gm/dl (6.4-8.2); Troponin I < 0.015 ng/ml (0-0.045)
--- NOTE | 2020-04-23 14:33 | XRay Report ---
XR chest 1V portable CLINICAL HISTORY: Atypical chest pain COMPARISON STUDY: No previous studies for comparison. FINDINGS: The heart is mildly enlarged. There is aortic tortuosity/ectasia. There is mild interstitia l prominence but no evidence of overt failure. There is no evidence of focal pulmonary consolidation. There are no significant pleural effusions. IMPRESSION: 1. Mild interstitial prominence but no evidence of overt failure 2. No evidence of focal pulmonary consolidation ACT 112: Negative or not required by law. Electronically signed by: Magno Castro M.D. 04/23/2020 2:32 PM
[2020-04-23] MEDS ORDERED: OPTIRAY 320 125ml IV ONE (15:06)
[2020-04-23 15:08] LABS: Appearance Urine Clear (Clear); Bacteria Urine Automated Negative (Negative); Bilirubin Urine Negative (Negative); Blood Urine Negative (Negative); Color Urine Yellow; Glucose Urine UA Negative (Negative); Ketones Urine Trace (Negative); Leukocyte Esterase Urine Negative (Negative); Nitrite Urine Negative (Negative); Protein Urine 1+ (Negative); RBC Urine Automated 0-4 /hpf (0-4); Specific Gravity Urine 1.023 (1.000-1.030); Urobilinogen Urine Negative (Negative); pH Urine 6.5 (4.5-7.5)
--- NOTE | 2020-04-23 15:22 | CT Scan Report ---
CT head/brain wo con CLINICAL HISTORY: Vertigo, nausea, vomiting. Possible stroke COMPARISON STUDY: July 2015 TECHNIQUE: Axial CT of the brain is performed from the vertex to the skull base. IV contrast was not administered for this examination. A dose lowering technique was utilized adhering to the principles of ALARA. CT DOSE: FINDINGS: No intra or extra-axial mass lesions are visualized. There is no CT evidence of acute cortical infarc tion. There is no evidence of midline shift. There is no acute hemorrhage. No calvarial fractures ar e visualized. There are moderate white matter hypodensities likely on a small vessel basis. There is an old right p arieto-occipital infarct. There is an old left cerebellar infarct. There is an old right cerebellar i nfarct which was not present on the preceding study. There is no evidence of pathologic ventricular dilatation. There is right maxillary sinus mucosal disease IMPRESSION: 1. No acute intracranial findings 2. Old right parieto-occipital infarct and old bilateral cerebellar infarcts. The right cerebellar in farct was not present in 2016 ACT 112: Negative or not required by law. Electronically signed by: Magno Castro M.D. 04/23/2020 3:20 PM
--- NOTE | 2020-04-23 15:33 | CT Scan Report ---
HEAD & NECK CTA HISTORY: vertigo, n/v TECHNIQUE: Multiaxial CT images of the head were performed following the intravenous administration o f contrast to evaluate the major cerebral vessels. Multiaxial CT images of the neck were also perform ed following the intravenous administration of contrast to evaluate the major cervical vessels. Maxim um intensity projection images were also obtained. A dose lowering technique was utilized adhering to the principles of ALARA. COMPARISON: None. FINDINGS: There is no mass, hematoma, midline shift, or acute infarct. Visualized intracranial internal carotid arteries, distal vertebral arteries, and basilar artery are widely patent. There is no significant s tenosis, occlusion, or aneurysm seen within the bilateral ACAs, right MCA, or optical effects layout person. Mild multifocal n arrowing within left M2 segments. Mild calcified plaque within the bilateral carotid siphons. Mild mu cosal thickening in the right maxillary sinus. Moderate left mastoid effusion. 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 There is also an old right parietal infarct. The major dural venous sinuses appear paten t. There is a persistent left posterior circulation. The aortic arch and proximal great vessels are widely patent. There is no significant stenosis, occ lusion, or dissection identified within the bilateral common carotid, internal carotid, or vertebral arteries. IMPRESSION: 1. Mild multifocal narrowing within the left M2 segments. Otherwise, no significant centimeters steno sis, occlusion, or aneurysm within the remaining [place]. 2. No significant stenosis, occlusion, or dissection identified within the carotid or vertebral arter ies. ACT 112: Negative or not required by law. Electronically signed by: Alfonso Adamson M.D. 04/23/2020 3:32 PM
--- NOTE | 2020-04-23 15:33 | CT Scan Report ---
HEAD & NECK CTA HISTORY: vertigo, n/v TECHNIQUE: Multiaxial CT images of the head were performed following the intravenous administration o f contrast to evaluate the major cerebral vessels. Multiaxial CT images of the neck were also perform ed following the intravenous administration of contrast to evaluate the major cervical vessels. Maxim um intensity projection images were also obtained. A dose lowering technique was utilized adhering to the principles of ALARA. COMPARISON: None. FINDINGS: There is no mass, hematoma, midline shift, or acute infarct. Visualized intracranial internal carotid arteries, distal vertebral arteries, and basilar artery are widely patent. There is no significant s tenosis, occlusion, or aneurysm seen within the bilateral ACAs, right MCA, or freight representative. Mild multifocal n arrowing within left M2 segments. Mild calcified plaque within the bilateral carotid siphons. Mild mu cosal thickening in the right maxillary sinus. Moderate left mastoid effusion. 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 There is also an old right parietal infarct. The major dural venous sinuses appear paten t. There is a persistent left posterior circulation. The aortic arch and proximal great vessels are widely patent. There is no significant stenosis, occ lusion, or dissection identified within the bilateral common carotid, internal carotid, or vertebral arteries. IMPRESSION: 1. Mild multifocal narrowing within the left M2 segments. Otherwise, no significant centimeters steno sis, occlusion, or aneurysm within the remaining [place]. 2. No significant stenosis, occlusion, or dissection identified within the carotid or vertebral arter ies. ACT 112: Negative or not required by law. Electronically signed by: Alfonso Adamson M.D. 04/23/2020 3:32 PM
[2020-04-23] MEDS ORDERED: CLOPIDOGREL BISULFATE 300 MG TAB PO ONE (18:32)
--- NOTE | 2020-04-23 18:36 | History & Physical Report ---
Date of Service April 23, 2020 Assessment & Plan (1) Stroke: 75 yo M Hx DM2 on insulin therapy, ? CAD, HTN, FREDRICK on CPAP admitted for CVA workup given profound vertiginous symptoms, also noted to have significant diarrhea while taking history. ? CVA: - CT Head shows old right parietal and old left cerebellar infarct that were known from 2016. It also shows old infarct of right cerebellum that was not present on previous imaging. - Patient's symptoms do not worsen with turning of the head, therefore inconsistent with BPPV. - MRI Brain w/wo ordered: 3 mm focus of restricted water diffusion within the left posterior medulla, suspicious for a tiny acute/subacute infarct. - Allow for permissive HTN. - Symptoms for over 24 hours prior to presentation, did not qualify for TPA. - Patient was on aspirin 81 daily prior to admission. Have added Plavix to daily regimen. - Echo, Hgb A1c and lipid panel in AM. Presentation of bilateral cerebellar infarcts in the past is suspicious for cardioembolic cause. - Neurology consult placed, appreciate recommendations. Diarrhea: - History of for about 2 years for which he takes Imodium regularly. - Stool culture ordered, however unlikely given length of diarrhea without other infectious signs. - Suspect most likely cause of diarrhea is ketogenic diet, as patient only eats meat at home. - Continue Imodium, and discussed dietary modification. HTN: - History of, on captopril and carvedilol in outpatient setting. - Will hold captopril to allow for permissive HTN. ? CAD: - History of noted in EMR, however unable to find record of any stents placed. - Patient is on aspirin and carvedilol in outpatient setting. - Continue carvedilol and aspirin. - Echo in AM as described above. DM2: - History of, on daily insulin therapy. - Continued home Lantus dosing, with SSI. - DM2 diet. - Holding metformin. BPH: - History of, on finasteride and Myrbetriq. - Continue these medications. FREDRICK: - History of, on home CPAP. - May use own CPAP if it is brought here. Otherwise continue with our CPAP with home settings. Code Status: FULL CODE FEN: DM2, Heart Healthy diet DVT ppx: SCDs Dispo: Telemetry for Neuro checks and continuous cardiac monitoring, Echo, CVA workup, Neuro consult in AM (2) Diabetes mellitus: (3) CAD (coronary artery disease): (4) Hypertension: (5) Obstructive sleep apnea: (6) Diarrhea: History of Present Illness Chief Complaint: vertigo Primary Care Provider: Lucien Woodruff MD 75 yo M Hx DM2 on insulin therapy, ? CAD, HTN, FREDRICK on CPAP presented to ER for about 24 hours of extreme vertigo, such that he would follow very due to the room spinning if he wasn't lying flat. No recent illness, fevers or chills, headaches, chest pain or shortness of breath. In the ER patient had CT head and CTA head/neck which showed old bilateral cerebellar infarcts as well as old right parieto-occipital infarct, with mild narrowing of the left M2 segments. Hospitalist service was consulted for CVA work-up without TPA. On my interview patient is lying flat, because he reports that if he comes up above 30 degrees he starts to get tremendously dizzy with the room spinning around him. Self-reports a history of TIA, but no history per patient of true CVA. Reports that when he had a TIA he "couldn't read for 2 weeks because he couldn't comprehend the words". Allergies Allergy/AdvReac Type Severity Reaction Status Date / Time No Known Drug Allergies Allergy Verified 04/23/20 14:15 Home Medications Medication Instructions Recorded Confirmed Type Myrbetriq 50 mg PO DAILY 09/17/18 04/23/20 History aspirin 81 mg PO QAM 09/17/18 04/23/20 History multivitamin 1 tab PO QAM 09/17/18 04/23/20 History pen needle, diabetic 32 gauge x ea 10/23/18 03/30/20 History 5/32" OneTouch Delica Lancets 33 gauge #200 ea NS 11/22/18 03/30/20 Rx captopril 100 mg tablet 200 mg PO BID #360 tab 05/23/19 04/23/20 Rx carvedilol 3.125 mg tablet 3.125 mg PO BID #180 tab 05/23/19 04/23/20 Rx insulin aspart U-100 100 unit/mL 50 units SUBCUT DAILY 90 Days #45 08/04/19 04/23/20 Rx (3 mL) subcutaneous pen ml atorvastatin 80 mg tablet 80 mg PO HS #90 tab 08/15/19 04/23/20 Rx escitalopram oxalate 20 mg tablet 20 mg PO QPM #90 tab 09/30/19 04/23/20 Rx finasteride 5 mg tablet 5 mg PO DAILY #90 tab 09/30/19 04/23/20 Rx loperamide 2 mg capsule 2 mg PO BID cap 11/21/19 04/23/20 History insulin glargine 100 unit/mL (3 24 unit SUBCUT QAM #30 ml 01/21/20 04/23/20 Rx mL) subcutaneous pen metformin 500 mg tablet 1,000 mg PO BID #360 tab 03/09/20 04/23/20 Rx Past Med/Surg History Medical History Arthritis, septic Ataxic gait BPH (benign prostatic hyperplasia) CAD (coronary artery disease) Cancer of kidney TUMOR REMOVED Cancer of kidney Depression Diabetes mellitus Diabetes mellitus, type 2 Dyslipidemia Erectile dysfunction 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 Hyperlipidemia Hypertension Hypertension Nephrolithiasis Obesity Obstructive sleep apnea Pulmonary nodule Right knee DJD Sensorineural hearing loss (SNHL) of both ears Sleep apnea CPAP Stress incontinence, male Transient ischemic attack (TIA) S/P KNEE SURGERY 7 YEARS AGO (NO CURRENT PROBLEMS/COULD NOT READ AT TIME OF INJURY) Urge incontinence of urine Surgical History History of cardiac cath 25 YEARS AGO (NO STENTS) History of cataract surgery RT/LEFT History of colonoscopy History of cystoscopy History of hand surgery RT HAND TENDON REPAIR (3 TOTAL SURGERIES) History of kidney surgery RT KIDNEY TUMOR REMOVED History of repair of rotator cuff RT ARM X 3 History of tonsillectomy History of tooth extraction History of total knee replacement RT KNEE+ANTIBIOTIC SPACER THEN REVISION) Family History Mother , age 44 of colon cancer. Family hx of colon cancer Father , age 57 of an OR. 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 Other Information That Helps Us Care for You: No Feels Safe at Home: Yes Safety Concerns: Feels Safe At This Time Seatbelt Use: always Sunscreen Use: No Assistive Devices: None Review of Systems Review of Systems: All systems reviewed & are unremarkable except as noted in HPI & below Constitutional: + malaise; no fever and no chills Respiratory: no cough and no dyspnea Cardiovascular: no chest pain, no palpitations and no edema Gastrointestinal: no abdominal pain, no constipation and no diarrhea/loose st ools Physical Exam Constitutional: WD/WN, vitals as above Eyes: PERRL, conjunctivae normal, anicteric sclerae ENMT: external ear and nose normal, oropharynx normal Neck: normal visual inspection Respiratory: normal respiratory effort, lungs clear to auscultation Cardiovascular: RRR, no murmur, no edema Gastrointestinal (Abdomen): normal bowel sounds, soft, nontender, no hepatosplenomegaly Musculoskeletal: no cyanosis or clubbing, extremities motor strength 5/5 Skin: no rashes, warm and dry Neurologic: AAOx3, normal speech. PERRLA, EOMI, no nystagmus. Bilateral UE, LE, and face without sensory or motor deficits. No tremor. Patient becomes significantly dizzy with elevation of HOB to 30 degrees. Psychiatric: A+Ox3, euthymic affect Results & Data Results & Data ([facility]) Vital Signs (Past 12 Hours) Vital Signs Temp Pulse Pulse Resp BP BP Pulse Ox 04/23/20 18:00 56 L 18 149/73 H 97 04/23/20 16:45 60 20 181/87 H 98 04/23/20 15:45 62 17 147/78 H 96 04/23/20 14:50 70 17 150/81 H 97 04/23/20 13:41 63 22 159/85 H 97 04/23/20 12:49 66 21 174/90 H 98 04/23/20 12:38 36.5 C 68 18 161/96 H 97 Supervising Physician Co-Signing Physician Notes I personally saw and examined the patient. I verified all velásquez points and agree with resident physician Dr. Padmini Brunner with the following exceptions and/or additions: 75-year-old male with prior CVAs confirmed on CT head today presents with 24 hours of vertigo. O/E patient is very hard of hearing, no lateralizing weakness, no facial droop, PERRL, reproducible when he sits up but okay when he turns his head while lying down Labs, EKG, imaging reviewed A/P CVA - confirmed on MRI. Continue full stroke work-up with TTE, telemetry, PT/OT eval's. Allow permissive hypertension and will hold his usual captopril but continue carvedilol to avoid rebound tachycardia. Continue his high-dose atorvastatin 80 mg p.o. at bedtime. Lipid panel and HbA1c with a.m. labs. Consult neurology. Resident Activity Tracking Resident Involvement: Resident Care Provided Care Provided: Adult Hospital Medicine (1) Diabetes mellitus Diabetes mellitus complication status: without complication Diabetes mellitus termination clerk insulin use: with senior living use Diabetes mellitus type: type 2 Qualified Code(s): E11.9 - Type 2 diabetes mellitus without complications; Z79.4 - termination clerk (current) use of insulin (2) CAD (coronary artery disease) Associated angina: without angina Coronary Disease-Associated Artery/Lesion type: [place] artery [place] vs. transplanted heart: [place] heart Qualified Code(s): I25.10 - Atherosclerotic heart disease of [place] coronary artery without angina pectoris (3) Diarrhea Diarrhea type: unspecified type Qualified Code(s): R19.7 - Diarrhea, unspecified (4) Hypertension Hypertension type: essential hypertension Qualified Code(s): I10 - Essential (primary) hypertension (5) Stroke CVA mechanism: unspecified Qualified Code(s): I63.9 - Cerebral infarction, unspecified
--- NOTE | 2020-04-23 20:29 | Magnetic Resonance Report ---
MRI OF THE BRAIN WITHOUT CONTRAST CLINICAL HISTORY: Vertigo. Trauma. Patient off balance. Inability to ambulate. History of renal tumor . Evaluate for acute stroke. COMPARISON STUDY: Noncontrast head CT dated 04/23/2020 FINDINGS: Sagittal T1, axial diffusion, proton density and T2 weighted axial, coronal FLAIR, and axial T1-weigh neeta images were acquired. There is ferromagnetic artifact arising from the right frontal scalp. No intra or extra-axial mass lesions are visualized There is a 3 mm focus of restricted water diffusion within the left posterior medulla. The findings a re suspicious for a tiny acute to subacute infarct There is no evidence of ventricular dilatation. Proton density T2-weighted and FLAIR images reveal moderate foci of increased T2 signal within the wh ite matter, likely on a small vessel basis. There is an old right parieto-occipital infarct. There ar e old bilateral cerebellar infarcts. There are no abnormal flow voids. There is a left mastoid effusion. There is right maxillary sinus mucosal thickening. IMPRESSION: 1. 3 mm focus of restricted water diffusion within the left posterior medulla. The findings are suspi cious for a tiny acute/subacute infarct 2. Old right parieto-occipital infarct 3. Old bilateral cerebellar infarcts 4. Left mastoid effusion ACT 112: Negative or not required by law. Electronically signed by: Magno Castro M.D. 04/23/2020 8:27 PM
[2020-04-23] MEDS ORDERED: GLUCOSE 40% GEL 15 GM TUBE PO PRN (21:28)
[2020-04-23] MEDS ORDERED: CARBOHYDRATES FOR HYPOGLYCEMIA PO PRN (21:28)
[2020-04-23] MEDS ORDERED: PHARMACIST DISCHARGE MED REC CONSULT PRN (21:28)
[2020-04-23] MEDS ORDERED: GLUCOSE 10 TABS/TUBE PO PRN (21:28)
[2020-04-23] MEDS ORDERED: ONDANSETRON INJ 2 MG/ML 2 ML VIAL IV PRN (21:28)
[2020-04-23] MEDS ORDERED: GLUCAGON FOR INJ 1 MG VIAL SQ PRN (21:28)
[2020-04-23] MEDS ORDERED: DEXTROSE 50% 50 ML SYRINGE IV PRN (21:28)
[2020-04-23] MEDS: INSULIN ASPART 100 UNITS/ML 3 ML PEN SC SCH (23:08)
[2020-04-23] MEDS: LOPERAMIDE HCL 2 MG CAP PO SCH (23:23)
[2020-04-23] MEDS: carvediloL 3.125 MG TAB PO SCH (23:25)
[2020-04-23] MEDS: ESCITALOPRAM OXALATE 20 MG TAB PO SCH (23:25)
[2020-04-23] MEDS: ATORVASTATIN 40 MG TAB PO SCH (23:26)
[2020-04-24 06:47] LABS: Basophils # (auto) 0.05 K/uL (0-0.2); Basophils % (auto) 0.6 %; Eosinophils % (auto) 6.8 %; Hematocrit (blood only) 38.7 % (42-52); Immature Granulocytes # (auto) 0.01 K/uL (0.00-0.02); Immature Granulocytes % (auto) 0.1 %; Lymphocytes # (auto) 1.56 K/uL (1.2-3.4); Lymphocytes % (auto) 17.7 %; Mean Corpuscular Hemoglobin 30.8 pg (25-34); Mean Corpuscular Hgb Conc 33.6 g/dL (32-36); Mean Corpuscular Volume 91.7 fL (80-100); Mean Platelet Volume 10.4 fL (7.4-10.4); Monocytes # (auto) 1.05 K/uL (0.11-0.59); Monocytes % (auto) 11.9 %; Neutrophils # (auto) 5.53 K/uL (1.4-6.5); Neutrophils % (auto) 62.9 %; Platelet Count 266 K/uL (130-400); RDW Coefficient of Variation 14.3 % (11.5-14.5); RDW Standard Deviation 48.5 fL (36.4-46.3); Red Blood Count 4.22 M/uL (4.7-6.1)
--- NOTE | 2020-04-24 07:09 | Electrocardiogram Report ---
Test Reason : Blood Pressure : / mmHG Vent. Rate : 067 BPM Atrial Rate : 067 BPM P-R Int : 184 ms QRS Dur : 096 ms QT Int : 420 ms P-R-T Axes : 011 -27 031 degrees QTc Int : 443 ms Normal sinus rhythm Minimal voltage criteria for LVH, may be normal variant Borderline ECG When compared with ECG of 11-JUN-2017 11:30, No significant change was found Confirmed by Scott Bolanos ([id number]) on 04/24/2020 7:09:16 AM Referred By: REFERRED SELF Confirmed By:Scott Bolanos
[2020-04-24 07:20] LABS: BUN Creatinine Ratio 23.9 (10-20); Calcium 8.9 mg/dl (8.5-10.1); Creatinine Clr Calc Pharmacy 95.2 ml/min; Est GFR (African American) 102.3; Est GFR (Non-African American) 88.3; Potassium 3.8 mmol/L (3.5-5.1)
[2020-04-24 07:24] LABS: Estimated Average Glucose 123 mg/dl; Hemoglobin A1C 5.9 % (4.5-5.6)
[2020-04-24] MEDS: CLOPIDOGREL BISULFATE 75 MG TAB PO SCH (08:39)
[2020-04-24] MEDS: MIRABEGRON ER 25 MG TAB PO SCH (08:40)
[2020-04-24] MEDS: MULTIVITAMIN TAB PO SCH (08:40)
[2020-04-24] MEDS: ASPIRIN 81 MG ECTAB PO SCH (08:40)
[2020-04-24] MEDS: carvediloL 3.125 MG TAB PO SCH ×2 (08:41→20:50)
[2020-04-24] MEDS: INSULIN GLARGINE SOLOSTAR 100 UNITS/ML 3 ML PEN SQ SCH (08:43)
[2020-04-24] MEDS: INSULIN ASPART 100 UNITS/ML 3 ML PEN SC SCH ×4 (08:44→21:00)
--- NOTE | 2020-04-24 08:58 | Neurology Consultation ---
Date of Consultation April 24, 2020 Assessment & Plan (1) CVA (cerebrovascular accident): (2) Vertigo: Patient had the acute onset of positional vertigo resulting in gait disturbance April 22. This acts very much like an inner ear issue, although it is not localizable. His neurologic examination is otherwise normal today with no focal findings, meningeal signs, or encephalopathy. Clinically, he is improving today compared to yesterday. MRI of the brain showed a small left medullary acute infarct. This lesion could explain positional vertigo as well. This small stroke happened despite aspirin. Patient has multiple old strokes including a right parieto-occipital stroke and old somewhat large bilateral cerebellar hemisphere strokes. Interestingly, he has not had any previous clinical history that he can recall referable to the cerebellar strokes. I believe his 2 week history of inability to read following knee surgery seven years ago, is explained by the right parieto-occipital stroke. He has moderate chronic old small vessel ischemia and has significant risk f actors for stroke including hypertension, diabetes, and dyslipidemia. Recommendations: 1. add clopidogrel 75 milligrams a day to the 81 milligram aspirin. After 3 weeks, discontinue the aspirin and remain on clopidogrel alone. 2. Control blood pressure as you are doing but keeping the mean arterial pressure around 95-100. 3. Hemoglobin A1c is less than 6 and glucose control is adequate. 4. Patient is already on atorvastatin 80 milligrams daily, and his lipids are controlled nicely. I recommend keeping the atorvastatin dose the same. 5. PT and OT, increasing activity as able. 6. meclizine could be given as needed for the vertiginous feelings Overall, I spent a total of 75 minutes with this case including review of records, review of MRI films, direct evaluation patient bedside, and discussion of the case with the patient at bedside, RN at bedside, and Dr. Laboy, including differential diagnosis and treatment options. History of Present Illness Reason for Consultation: Patient is a 75-year-old, who I was asked to see the request of Dr. Villaseñor for neurologic consultation regarding acute onset vertigo, question stroke Requesting Physician: patient has a history of type 2 diabetes, hypertension, dyslipidemia, coronary artery disease, and previous renal cell carcinoma. He has obstructive sleep apnea on CPAP and is followed by Dr. Woodruff. He has been on 81 milligram aspirin tablet daily for many years. He does not remember any previous stroke but does remember a time about 7 years ago when he had a knee replacement, and could not read word for about 2 weeks. He calls this a "TIA". The patient has profound hearing loss and has powerful hearing aids bilaterally. 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 Over the last 10 years he has had the hearing loss. He is active physically around his family property cutting and splitting wood for his home's heat Around noon time on April 22 he was standing outside cutting wood with a chainsaw when he suddenly, without warning, fell over. He could not keep his balance and noted vertigo. He thought the vertigo was random and he was not pulled over in any particular direction. He could not walk ended up crawling back into the house after falling several times. He had some nausea and vomiting. When he sat down he felt better but the symptoms resolved with lying. There was no headache or other pain, speech problem, mentation issue, weakness of the limbs, numbness, or vision problems. When he was still, he did not have vertigo. When he stood up he would get the vertigo and not be able to walk, even with a walker. Got up morning of April 23 and was the same with his vertigo and inability to walk. He arrived at the emergency room April 23 at 1238, with a temperature of 36.5, pulse 68, respiratory rate 18, blood pressure 161/96, and O2 saturation of 97 percent. In the emergency room his neurologic examination was unremarkable with no nystagmus or other focal findings although when he sat up he was vertiginous. CBC and Chem profile were unremarkable. He was Covid-19 negative. Chest x-ray was unremarkable. CT scan of the head showed an old right parieto-occipital stroke and old bilateral cerebellar strokes although the right cerebellar stroke was not present on a previous CT scan of 2016. CT angiography of the head showed some narrow left M2 vessels. CT angiography of the neck was unremarkable. MRI of the brain showed a tiny acute left posterior medulla CVA. There was moderate generalized atrophy and old small vessel ischemic changes seen diffusely in the white matter. I have reviewed these films. This morning the patient feels much better and can set up some with much less vertigo. He has no new issues. Hemoglobin A1c was 5.9, triglycerides 82, and total cholesterol 137. blood pressure was 136/48 and he had sinus Ken with PACs overnight. Attending Physician: Asim Laboy Allergies Allergy/AdvReac Type Severity Reaction Status Date / Time No Known Drug Allergies Allergy Verified 04/23/20 14:15 Home Medications Medication Instructions Recorded Confirmed Type Myrbetriq 50 mg PO DAILY 09/17/18 04/23/20 History aspirin 81 mg PO QAM 09/17/18 04/23/20 History multivitamin 1 tab PO QAM 09/17/18 04/23/20 History pen needle, diabetic 32 gauge x ea 10/23/18 03/30/20 History 5/32" OneTouch Delica Lancets 33 gauge #200 ea NS 11/22/18 03/30/20 Rx captopril 100 mg tablet 200 mg PO BID #360 tab 05/23/19 04/23/20 Rx carvedilol 3.125 mg tablet 3.125 mg PO BID #180 tab 05/23/19 04/23/20 Rx insulin aspart U-100 100 unit/mL 50 units SUBCUT DAILY 90 Days #45 08/04/19 04/23/20 Rx (3 mL) subcutaneous pen ml atorvastatin 80 mg tablet 80 mg PO HS #90 tab 08/15/19 04/23/20 Rx escitalopram oxalate 20 mg tablet 20 mg PO QPM #90 tab 09/30/19 04/23/20 Rx finasteride 5 mg tablet 5 mg PO DAILY #90 tab 09/30/19 04/23/20 Rx loperamide 2 mg capsule 2 mg PO BID cap 11/21/19 04/23/20 History insulin glargine 100 unit/mL (3 24 unit SUBCUT QAM #30 ml 01/21/20 04/23/20 Rx mL) subcutaneous pen metformin 500 mg tablet 1,000 mg PO BID #360 tab 03/09/20 04/23/20 Rx Patient History Medical History Arthritis, septic Ataxic gait BPH (benign prostatic hyperplasia) CAD (coronary artery disease) Cancer of kidney TUMOR REMOVED Cancer of kidney Depression Diabetes mellitus Diabetes mellitus, type 2 Dyslipidemia Erectile dysfunction 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 Hyperlipidemia Hypertension Hypertension Nephrolithiasis Obesity Obstructive sleep apnea Pulmonary nodule Right knee DJD Sensorineural hearing loss (SNHL) of both ears Sleep apnea CPAP Stress incontinence, male Transient ischemic attack (TIA) S/P KNEE SURGERY 7 YEARS AGO (NO CURRENT PROBLEMS/COULD NOT READ AT TIME OF INJURY) Urge incontinence of urine Surgical History History of cardiac cath 25 YEARS AGO (NO STENTS) History of cataract surgery RT/LEFT History of colonoscopy History of cystoscopy History of hand surgery RT HAND TENDON REPAIR (3 TOTAL SURGERIES) History of kidney surgery RT KIDNEY TUMOR REMOVED History of repair of rotator cuff RT ARM X 3 History of tonsillectomy History of tooth extraction History of total knee replacement RT KNEE+ANTIBIOTIC SPACER THEN REVISION) Family History Mother , age 44 of colon cancer. Family hx of colon cancer Father , age 57 of an [place]. 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 Other Information That Helps Us Care for You: No Feels Safe at Home: Yes Safety Concerns: Feels Safe At This Time Seatbelt Use: always Sunscreen Use: No Assistive Devices: None Review of Systems Constitutional: no fever, no fatigue and no weakness Eyes: no diplopia, no eye pain and no worsening vision Ear, Nose, Mouth, Throat: + hearing loss and + dizziness; no ear pain, no tinnitus, no snoring, no hoarseness and no dysphagia Respiratory: no cough and no dyspnea Cardiovascular: no chest pain, no palpitations and no lightheadedness Gastrointestinal: no abdominal pain, no nausea and no vomiting Genitourinary: no dysuria and no urinary incontinence Musculoskeletal: no back pain, no neck pain, no radicular pain, no joint pain and no myalgia Integumentary: no rash and no lesions Neurologic: + gait abnormality; no localized weakness, no generalized weakness, no tingling, no numbness, no tremor(s), no abnormal movements, no headache(s), no abnormal speech, no confusion and no memory loss Psychiatric: no depression, no irritability, no anxiety, no difficulty concentrating, no confusion and no hallucinations Endocrine: no fatigue and no flushing Hematologic / Lymphatic: no easy bleeding and no easy bruising Allergy / Immunological: no urticaria and no problem reported Exam (Neuro) Physical Exam: The patient is right-handed. The patient is awake, alert, and attentive. Speech is normal without any aphasia or dysarthria. She can name objects, repeat phrases, and has normal spontaneous speech. Mentation and thought processes are intact, with orientation to person, place and time, and normal fund of knowledge. Attention and concentration are normal. Mood and affect are normal and appropriate. General appearance and grooming are normal. Short and long-term memory are intact. Pupils are 3 mm bilaterally and reactive to light. Extraocular eye muscles are intact without nystagmus. Visual acuity and visual dewey seem normal grossly to confrontation. There are no deficits to sensation in the face in all 3 distributions of the fifth cranial nerve bilaterally. Corneal reflexes are positive bilaterally. Facial strength and symmetry was normal bilaterally. He has significant hearing loss and wears powerful hearing aids bilaterally. Palate moves well without asymmetry. There is normal sternocleidomastoid and trapezius (shoulder shrug) strength bilaterally. Tongue is midline with good strength bilaterally. Neck has a full range of motion without discomfort. There are no cervical bruits bilaterally. There are no cranial or ocular bruits. Heart is without murmur. There is a regular rhythm and rate. Cervical, thoracic, and lumbar spine are nontender to palpation. Gait was not tested. Stance sitting straight up in bed produce some vertiginous feelings of a clockwise rotation without nystagmus. He managed to sit up fine and after 10 seconds, the vertiginous symptoms faded. With outstretched arms there is no drift. There are no resting, postural, or action tremors. There is no ataxia with finger to nose testing. There is good facility in the hands. No other abnormal involuntary movements are noted. Motor strength is 5/5 diffusely in the arms bilaterally including deltoids, biceps, triceps, brachioradialis, wrist flexors and extensors, patient observer, and intrinsic hand muscles. Motor strength is 5/5 diffusely in the legs bilaterally including hip flexors, quadriceps, hamstrings, gastrocnemius, tibialis anterior, tibialis posterior, and Peroneii muscles. Toe extensors are normal and there is good bulk in the extensor digitorum brevis muscles bilaterally. The limbs have good tone without rigidity or spasticity. There is no atrophy noted in the muscles. Muscle bulk is normal, there is no tenderness to palpation, no myotonia to percussion, and no fasciculations seen. Sensory examination is intact to touch and pin throughout all 4 limbs diffusely. Reflexes are 1/4 in the biceps, triceps, brachioradialis, quadriceps, and Achilles tendons bilaterally. There is no clonus bilaterally. Toes are downgoing with plantar stimulation bilaterally. Peripheral pulses are present and of normal quality distally in all 4 limbs. There is no peripheral edema noted in the limbs. Results & Data ([facility]) Vital Signs (Past 12 Hours) Vital Signs Temp Pulse Pulse Resp BP Pulse Ox Pulse Ox 04/24/20 07:05 36.6 C 55 L 19 136/48 L 97 04/24/20 04:12 36.6 C 57 L 18 174/82 H 95 04/24/20 03:15 58 L 18 96 04/24/20 01:46 56 L 04/23/20 23:45 36.6 C 56 L 18 160/84 H 96 04/23/20 22:58 67 14 97 04/23/20 22:00 37 C 59 L 18 194/92 H 97 04/23/20 21:28 37.0 C 59 L 18 194/92 H 97 97 PG Care Time/CCT Total # of Minutes Spent Total Time Spent with Patient: Total time spent is greater than 50% in coordination of care (as documented) at patient's floor/unit and/or counseling patient: Coding Level of Care Code 45367 Initial Inpt Care Lvl 3 Diagnoses CVA (cerebrovascular accident) I63.9 CVA mechanism: unspecified Vertigo R42 Time Spent (min) 75 (1) CVA (cerebrovascular accident) CVA mechanism: unspecified Qualified Code(s): I63.9 - Cerebral infarction, unspecified
[2020-04-24] MEDS: LOPERAMIDE HCL 2 MG CAP PO SCH ×2 (10:15→20:50)
--- NOTE | 2020-04-24 11:00 | Billing Data ---
Date of Service April 23, 2020 Coding Level of Care Code 20059 Initial Inpt Care Lvl 3
[2020-04-24] MEDS: ESCITALOPRAM OXALATE 20 MG TAB PO SCH (20:49)
[2020-04-24] MEDS: ATORVASTATIN 40 MG TAB PO SCH (20:49)
--- NOTE | 2020-04-24 22:12 | Hospitalist Progress Note ---
Date of Service April 24, 2020 Assessment & Plan (1) Stroke: 75 yo M Hx DM2 on insulin therapy, ? CAD, HTN, FREDRICK on CPAP admitted for CVA workup given profound vertiginous symptoms, also noted to have significant diarrhea while taking history. ? CVA: - CT Head shows old right parietal and old left cerebellar infarct that were known from 2016. It also shows old infarct of right cerebellum that was not present on previous imaging. - Patient's symptoms do not worsen with turning of the head, therefore inconsistent with BPPV. - MRI Brain w/wo ordered: 3 mm focus of restricted water diffusion within the left posterior medulla, suspicious for a tiny acute/subacute infarct. - Allow for permissive HTN. - Symptoms for over 24 hours prior to presentation, did not qualify for TPA. - Patient was on aspirin 81 daily prior to admission. Have added Plavix to daily regimen. - Echo, Hgb A1c and lipid panel in AM. Presentation of bilateral cerebellar infarcts in the past is suspicious for cardioembolic cause. - Neurology consult placed, appreciate recommendations. Will order PT and OT evaluations. will closely monitor blood pressure. Ordered amlodipine for PM dose. Diarrhea: - History of for about 2 years for which he takes Imodium regularly. - Stool culture ordered, however unlikely given length of diarrhea without other infectious signs. - Suspect most likely cause of diarrhea is ketogenic diet, as patient only eats meat at home. - Continue Imodium, and discussed dietary modification. HTN: - History of, on captopril and carvedilol in outpatient setting. -will add amlodipine ? CAD: - History of noted in EMR, however unable to find record of any stents placed. - Patient is on aspirin and carvedilol in outpatient setting. - Continue carvedilol and aspirin. - Echo in AM as described above. DM2: - History of, on daily insulin therapy. - Continued home Lantus dosing, with SSI. - DM2 diet. - Holding metformin. BPH: - History of, on finasteride and Myrbetriq. - Continue these medications. FREDRICK: - History of, on home CPAP. - May use own CPAP if it is brought here. Otherwise continue with our CPAP with home settings. Code Status: FULL CODE FEN: DM2, Heart Healthy diet DVT ppx: SCDs (2) Diabetes mellitus: (3) CAD (coronary artery disease): (4) Hypertension: (5) Obstructive sleep apnea: (6) Diarrhea: Admission and Anticipated Discharge Date Admission Date: April 23, 2020 Subjective Patient reports feeling well. He is less dizzy than when he first came in but is not at baseline as of yet. Review of Systems Review of Systems: All systems reviewed & are unremarkable except as noted in HPI & below Physical Exam Physical Exam: Constitutional: WD/WN, vitals as above Eyes: PERRL, conjunctivae normal, anicteric sclerae ENMT: external ear and nose normal, oropharynx normal Neck: normal visual inspection Respiratory: normal respiratory effort, lungs clear to auscultation Cardiovascular: RRR, no murmur, no edema Gastrointestinal (Abdomen): normal bowel sounds, soft, nontender, no hepatosplenomegaly Musculoskeletal: no cyanosis or clubbing, extremities motor strength 5/5 Skin: no rashes, warm and dry Neurologic: AAOx3, normal speech. PERRLA, EOMI, no nystagmus. Bilateral UE, LE, and face without sensory or motor deficits. No tremor. Psychiatric: A+Ox3, euthymic affect Results & Data Results & Data ([facility]) Vital Signs (Past 12 Hours) Vital Signs Temp Pulse Pulse Resp BP Pulse Ox 04/24/20 20:23 36.8 C 70 18 173/89 H 94 04/24/20 15:48 36.5 C 65 18 189/91 H 96 04/24/20 14:20 67 04/24/20 11:01 36.6 C 61 17 152/76 H 96 PG Care Time/CCT Total # of Minutes Spent Total Time Spent with Patient: Total time spent is greater than 50% in coordination of care (as documented) at patient's floor/unit and/or counseling patient: Coding Level of Care Code 31941 Subseq Hosp Care Lvl 3 Diagnoses Stroke I63.9 CVA mechanism: unspecified Diabetes mellitus E11.9; Z79.4 Diabetes mellitus complication status: without complication Diabetes mellitus mcc insulin use: with bed bug exterminator use Diabetes mellitus type: type 2 CAD (coronary artery disease) I25.10 Associated angina: without angina Coronary Disease-Associated Artery/Lesion type: [place] artery [place] vs. transplanted heart: [place] heart Hypertension I10 Hypertension type: essential hypertension Obstructive sleep apnea G47.33 Diarrhea R19.7 Diarrhea type: unspecified type Time Spent (min) 35 (1) Diabetes mellitus Diabetes mellitus complication status: without complication Diabetes mellitus mcc insulin use: with bed bug exterminator use Diabetes mellitus type: type 2 Qualified Code(s): E11.9 - Type 2 diabetes mellitus without complications; Z79.4 - manager terminal (current) use of insulin (2) CAD (coronary artery disease) Associated angina: without angina Coronary Disease-Associated Artery/Lesion type: [place] artery [place] vs. transplanted heart: [place] heart Qualified Code(s): I25.10 - Atherosclerotic heart disease of [place] coronary artery without angina pectoris (3) Diarrhea Diarrhea type: unspecified type Qualified Code(s): R19.7 - Diarrhea, unspecified (4) Hypertension Hypertension type: essential hypertension Qualified Code(s): I10 - Essential (primary) hypertension (5) Stroke CVA mechanism: unspecified Qualified Code(s): I63.9 - Cerebral infarction, unspecified
[2020-04-24] MEDS ORDERED: amLODIPine BESYLATE 5 MG TAB PO STA (22:13)
[2020-04-25 06:58] LABS: Basophils # (auto) 0.07 K/uL (0-0.2); Eosinophils # (auto) 0.59 K/uL (0-0.5); Eosinophils % (auto) 8.6 %; Hematocrit (blood only) 40.1 % (42-52); Hemoglobin 13.7 g/dL (14.0-18.0); Immature Granulocytes # (auto) 0.01 K/uL (0.00-0.02); Immature Granulocytes % (auto) 0.1 %; Lymphocytes # (auto) 1.94 K/uL (1.2-3.4); Lymphocytes % (auto) 28.3 %; Mean Corpuscular Hemoglobin 30.9 pg (25-34); Mean Corpuscular Hgb Conc 34.2 g/dL (32-36); Mean Corpuscular Volume 90.3 fL (80-100); Mean Platelet Volume 10.5 fL (7.4-10.4); Monocytes # (auto) 0.81 K/uL (0.11-0.59); Monocytes % (auto) 11.8 %; Neutrophils # (auto) 3.43 K/uL (1.4-6.5); Neutrophils % (auto) 50.2 %; Platelet Count 281 K/uL (130-400); RDW Coefficient of Variation 14.1 % (11.5-14.5); Red Blood Count 4.44 M/uL (4.7-6.1); White Blood Count 6.85 K/uL (4.8-10.8)
[2020-04-25 07:24] LABS: BUN Creatinine Ratio 27.5 (10-20); Calcium 8.3 mg/dl (8.5-10.1); Creatinine Clr Calc Pharmacy 80.4 ml/min; Est GFR (African American) 95.2; Est GFR (Non-African American) 82.2; Potassium 3.7 mmol/L (3.5-5.1)
[2020-04-25] MEDS: MIRABEGRON ER 25 MG TAB PO SCH (08:07)
[2020-04-25] MEDS: MULTIVITAMIN TAB PO SCH (08:07)
[2020-04-25] MEDS: CLOPIDOGREL BISULFATE 75 MG TAB PO SCH (08:07)
[2020-04-25] MEDS: carvediloL 3.125 MG TAB PO SCH ×2 (08:07→21:10)
[2020-04-25] MEDS: LOPERAMIDE HCL 2 MG CAP PO SCH ×2 (08:10→21:09)
[2020-04-25] MEDS: ASPIRIN 81 MG ECTAB PO SCH (08:10)
[2020-04-25] MEDS: INSULIN GLARGINE SOLOSTAR 100 UNITS/ML 3 ML PEN SQ SCH (08:11)
[2020-04-25] MEDS: INSULIN ASPART 100 UNITS/ML 3 ML PEN SC SCH ×4 (08:13→21:43)
[2020-04-25] MEDS: ESCITALOPRAM OXALATE 20 MG TAB PO SCH (21:10)
[2020-04-25] MEDS: ATORVASTATIN 40 MG TAB PO SCH (21:10)
--- NOTE | 2020-04-25 22:37 | Hospitalist Progress Note ---
Date of Service April 25, 2020 Assessment & Plan (1) Stroke: 75 yo M Hx DM2 on insulin therapy, ? CAD, HTN, FREDRICK on CPAP admitted for CVA workup given profound vertiginous symptoms, also noted to have significant diarrhea while taking history. ? CVA: - CT Head shows old right parietal and old left cerebellar infarct that were known from 2016. It also shows old infarct of right cerebellum that was not present on previous imaging. - Patient's symptoms do not worsen with turning of the head, therefore inconsistent with BPPV. - MRI Brain w/wo ordered: 3 mm focus of restricted water diffusion within the left posterior medulla, suspicious for a tiny acute/subacute infarct. - Allow for permissive HTN. - Symptoms for over 24 hours prior to presentation, did not qualify for TPA. - Patient was on aspirin 81 daily prior to admission. Have added Plavix to daily regimen - Neurology consult placed, appreciate recommendations. Echo reviewed. His dizziness is improving, will closely monitor blood pressure. Ordered amlodipine for PM dose. Diarrhea: - History of for about 2 years for which he takes Imodium regularly. - Stool culture ordered, however unlikely given length of diarrhea without other infectious signs. - Suspect most likely cause of diarrhea is ketogenic diet, as patient only eats meat at home. - Continue Imodium, and discussed dietary modification. HTN: - History of, on captopril and carvedilol in outpatient setting. -will add amlodipine ? CAD: - History of noted in EMR, however unable to find record of any stents placed. - Patient is on aspirin and carvedilol in outpatient setting. - Continue carvedilol and aspirin. - Echo in AM as described above. DM2: - History of, on daily insulin therapy. - Continued home Lantus dosing, with SSI. - DM2 diet. - Holding metformin. BPH: - History of, on finasteride and Myrbetriq. - Continue these medications. FREDRICK: - History of, on home CPAP. - May use own CPAP if it is brought here. Otherwise continue with our CPAP with home settings. Code Status: FULL CODE FEN: DM2, Heart Healthy diet DVT ppx: SCDs (2) Diabetes mellitus: (3) CAD (coronary artery disease): (4) Hypertension: (5) Obstructive sleep apnea: (6) Diarrhea: Admission and Anticipated Discharge Date Admission Date: April 23, 2020 Subjective 75 YO MALE reports feeling well. He still gets dizzy but this has improved. He ambulated with his walker (accompanied by myself) and had no issues. Review of Systems Review of Systems: All systems reviewed & are unremarkable except as noted in HPI & below Physical Exam Physical Exam: Constitutional: WD/WN, vitals as above Eyes: PERRL, conjunctivae normal, anicteric sclerae ENMT: external ear and nose normal, oropharynx normal Neck: normal visual inspection Respiratory: normal respiratory effort, lungs clear to auscultation Cardiovascular: RRR, no murmur, no edema Gastrointestinal (Abdomen): normal bowel sounds, soft, nontender, no hepatosplenomegaly Musculoskeletal: no cyanosis or clubbing, extremities motor strength 5/5 Skin: no rashes, warm and dry Neurologic: AAOx3, normal speech. PERRLA, EOMI, no nystagmus. Bilateral UE, LE, and face without sensory or motor deficits. No tremor. Psychiatric: A+Ox3, euthymic affect Results & Data Results & Data ([facility]) Vital Signs (Past 12 Hours) Vital Signs Temp Pulse Pulse Pulse Resp BP BP 04/25/20 21:00 04/25/20 20:32 66 04/25/20 19:25 36.6 C 72 20 149/65 H 04/25/20 15:11 37.0 C 64 19 150/82 H 04/25/20 14:50 65 04/25/20 11:47 36.8 C 57 L 18 157/77 H Pulse Ox Pulse Ox 04/25/20 21:00 95 04/25/20 20:32 04/25/20 19:25 95 04/25/20 15:11 95 04/25/20 14:50 04/25/20 11:47 97 PG Care Time/CCT Total # of Minutes Spent Total Time Spent with Patient: Total time spent is greater than 50% in coordination of care (as documented) at patient's floor/unit and/or counseling patient: Coding Level of Care Code 69209 Subseq Hosp Care Lvl 3 Diagnoses Stroke I63.9 CVA mechanism: unspecified Diabetes mellitus E11.9; Z79.4 Diabetes mellitus complication status: without complication Diabetes mellitus nursing home insulin use: with nursing home use Diabetes mellitus type: type 2 CAD (coronary artery disease) I25.10 Associated angina: without angina Coronary Disease-Associated Artery/Lesion type: [place] artery [place] vs. 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 transplanted heart: [place] heart Qualified Code(s): I25.10 - Atherosclerotic heart disease of [place] coronary artery without angina pectoris (3) Diarrhea Diarrhea type: unspecified type Qualified Code(s): R19.7 - Diarrhea, unspecified (4) Hypertension Hypertension type: essential hypertension Qualified Code(s): I10 - Essential (primary) hypertension (5) Stroke CVA mechanism: unspecified Qualified Code(s): I63.9 - Cerebral infarction, unspecified
[2020-04-26 07:23] LABS: Basophils # (auto) 0.07 K/uL (0-0.2); Basophils % (auto) 0.9 %; Eosinophils # (auto) 0.54 K/uL (0-0.5); Eosinophils % (auto) 7.2 %; Hematocrit (blood only) 41.9 % (42-52); Hemoglobin 14.2 g/dL (14.0-18.0); Immature Granulocytes # (auto) 0.01 K/uL (0.00-0.02); Immature Granulocytes % (auto) 0.1 %; Lymphocytes # (auto) 2.07 K/uL (1.2-3.4); Lymphocytes % (auto) 27.5 %; Mean Corpuscular Hemoglobin 30.8 pg (25-34); Mean Corpuscular Hgb Conc 33.9 g/dL (32-36); Mean Corpuscular Volume 90.9 fL (80-100); Mean Platelet Volume 10.6 fL (7.4-10.4); Monocytes # (auto) 0.99 K/uL (0.11-0.59); Monocytes % (auto) 13.2 %; Neutrophils # (auto) 3.84 K/uL (1.4-6.5); Neutrophils % (auto) 51.1 %; Platelet Count 266 K/uL (130-400); RDW Coefficient of Variation 14.1 % (11.5-14.5); RDW Standard Deviation 46.5 fL (36.4-46.3); Red Blood Count 4.61 M/uL (4.7-6.1); White Blood Count 7.52 K/uL (4.8-10.8)
[2020-04-26 07:50] LABS: BUN Creatinine Ratio 32.2 (10-20); Calcium 8.6 mg/dl (8.5-10.1); Est GFR (African American) 95.2; Est GFR (Non-African American) 82.2; Potassium 3.8 mmol/L (3.5-5.1)
[2020-04-26] MEDS: INSULIN GLARGINE SOLOSTAR 100 UNITS/ML 3 ML PEN SQ SCH (08:00)
[2020-04-26] MEDS: INSULIN ASPART 100 UNITS/ML 3 ML PEN SC SCH ×3 (08:01→16:49)
[2020-04-26] MEDS: MIRABEGRON ER 25 MG TAB PO SCH (08:01)
[2020-04-26] MEDS: ASPIRIN 81 MG ECTAB PO SCH (08:01)
[2020-04-26] MEDS: carvediloL 3.125 MG TAB PO SCH (08:01)
[2020-04-26] MEDS: CLOPIDOGREL BISULFATE 75 MG TAB PO SCH (08:01)
[2020-04-26] MEDS: MULTIVITAMIN TAB PO SCH (08:01)
[2020-04-26] MEDS: LOPERAMIDE HCL 2 MG CAP PO SCH (08:01)
[2020-04-26] MEDS ORDERED: STROKE PATIENT DISCHARGE STA (15:00)
--- NOTE | 2020-04-26 18:30 | Pharmacy Report ---
Pharmacist Stroke Counseling - Date of Service April 26, 2020 - Scope: Pharmacy has been consulted to provide medication discharge counseling for this patient admitted with transient ischemic attack as per the Pharmacist Discharge Counseling for Stroke Patients Protocol. - Medications on Discharge: Home Medications Medication Instructions Recorded Confirmed Myrbetriq 50 mg PO DAILY 09/17/18 04/23/20 aspirin 81 mg PO QAM 09/17/18 04/23/20 multivitamin 1 tab PO QAM 09/17/18 04/23/20 pen needle, diabetic 32 gauge x ea 10/23/18 03/30/20 5/32" loperamide 2 mg capsule 2 mg PO BID cap 11/21/19 04/23/20 New Rx's Medication Instructions Recorded OneTouch Delica Lancets 33 gauge #200 ea NS 11/22/18 carvedilol 3.125 mg tablet 3.125 mg PO BID #180 tab 05/23/19 insulin aspart U-100 100 unit/mL 50 units SUBCUT DAILY 90 Days #45 08/04/19 (3 mL) subcutaneous pen ml atorvastatin 80 mg tablet 80 mg PO HS #90 tab 08/15/19 escitalopram oxalate 20 mg tablet 20 mg PO QPM #90 tab 09/30/19 finasteride 5 mg tablet 5 mg PO DAILY #90 tab 09/30/19 insulin glargine 100 unit/mL (3 24 unit SUBCUT QAM #30 ml 01/21/20 mL) subcutaneous pen metformin 500 mg tablet 1,000 mg PO BID #360 tab 03/09/20 amlodipine 2.5 mg PO PM #30 tab 04/26/20 clopidogrel 75 mg PO QAM #30 tab 04/26/20 lisinopril 5 mg PO PM #30 tab 04/26/20 - Action: The above medications, specifically ones for stroke treatment/prophylaxis, have been reviewed in detail with the patient and/or patient union representative(s) prior to discharge. This includes indication, common adverse reactions, drug interactions, and medication administration. Medication counseling has been employed using the teach-back method to ensure understanding. - Outcome: The patient and/or patient union representative(s) have demonstrated understanding of the medications. Additional comments: [] Thank you for allowing pharmacy to be involved in the care of this patient. Please call [phone] with any additional questions
--- NOTE | 2020-05-02 21:24 | Discharge Summary ---
Date of Service April 26, 2020 Admission HPI Per Admitting Provider 75 yo M Hx DM2 on insulin therapy, ? CAD, HTN, FREDRICK on CPAP presented to ER for about 24 hours of extreme vertigo, such that he would follow very due to the room spinning if he wasn't lying flat. No recent illness, fevers or chills, headaches, chest pain or shortness of breath. In the ER patient had CT head and CTA head/neck which showed old bilateral cerebellar infarcts as well as old right parieto-occipital infarct, with mild narrowing of the left M2 segments. Hospitalist service was consulted for CVA work-up without TPA. On my interview patient is lying flat, because he reports that if he comes up above 30 degrees he starts to get tremendously dizzy with the room spinning around him. Self-reports a history of TIA, but no history per patient of true CVA. Reports that when he had a TIA he "couldn't read for 2 weeks because he couldn't comprehend the words". Principal Diagnosis stroke Discharge Exam Constitutional: WD/WN, vitals as above Eyes: PERRL, conjunctivae normal, anicteric sclerae ENMT: external ear and nose normal, oropharynx normal Neck: normal visual inspection Respiratory: normal respiratory effort, lungs clear to auscultation Cardiovascular: RRR, no murmur, no edema Gastrointestinal (Abdomen): normal bowel sounds, soft, nontender, no hepatosplenomegaly Musculoskeletal: no cyanosis or clubbing, extremities motor strength 5/5 Skin: no rashes, warm and dry Neurologic: AAOx3, normal speech. PERRLA, EOMI, no nystagmus. Bilateral UE, LE, and face without sensory or motor deficits. No tremor. Psychiatric: A+Ox3, euthymic affect Discharge Data Allergies Allergy/AdvReac Type Severity Reaction Status Date / Time No Known Drug Allergies Allergy Verified 04/23/20 14:15 Consultations 04/23/20 16:31 ED Decision to Admit Stat 04/23/20 21:28 Consult Neurology Routine Ordered Studies 04/23/20 13:32 CT angio head w con Stat CT angio neck with con Stat CT head/brain wo con Stat 04/23/20 17:57 MR brain wo con Urgent Hospital Course (1) Stroke: 75 yo M Hx DM2 on insulin therapy, ? CAD, HTN, FREDRICK on CPAP admitted for CVA workup given profound vertiginous symptoms, also noted to have significant diarrhea while taking history. ? CVA: - CT Head shows old right parietal and old left cerebellar infarct that were known from 2016. It also shows old infarct of right cerebellum that was not present on previous imaging. - Patient's symptoms do not worsen with turning of the head, therefore inconsistent with BPPV. - MRI Brain w/wo ordered: 3 mm focus of restricted water diffusion within the left posterior medulla, suspicious for a tiny acute/subacute infarct. - Allow for permissive HTN. - Symptoms for over 24 hours prior to presentation, did not qualify for TPA. - Patient was on aspirin 81 daily prior to admission. Have added Plavix to daily regimen - Neurology consult placed, appreciate recommendations. (bold) Patient had the acute onset of positional vertigo resulting in gait disturbance April 22. This acts very much like an inner ear issue, although it is not localizable. His neurologic examination is otherwise normal today with no focal findings, meningeal signs, or encephalopathy. Clinically, he is improving today compared to yesterday. MRI of the brain showed a small left medullary acute infarct. This lesion could explain positional vertigo as well. This small stroke happened despite aspirin. Patient has multiple old strokes including a right parieto-occipital stroke and old somewhat large bilateral cerebellar hemisphere strokes. Interestingly, he has not had any previous clinical history that he can recall referable to the cerebellar strokes. I believe his 2 week history of inability to read following knee surgery seven years ago, is explained by the right parieto-occipital stroke. He has moderate chronic old small vessel ischemia and has significant risk factors for stroke including hypertension, diabetes, and dyslipidemia. Recommendations: 1. add clopidogrel 75 milligrams a day to the 81 milligram aspirin. After 3 weeks, discontinue the aspirin and remain on clopidogrel alone. 2. Control blood pressure as you are doing but keeping the mean arterial pressure around 95-100. 3. Hemoglobin A1c is less than 6 and glucose control is adequate. 4. Patient is already on atorvastatin 80 milligrams daily, and his lipids are controlled nicely. I recommend keeping the atorvastatin dose the same. 5. PT and OT, increasing activity as able. 6. meclizine could be given as needed for the vertiginous feelings Echo reviewed. His dizziness is improving, will closely monitor blood pressure. Ordered amlodipine for PM dose. Diarrhea: - History of for about 2 years for which he takes Imodium regularly. - Stool culture ordered, however unlikely given length of diarrhea without other infectious signs. - Suspect most likely cause of diarrhea is ketogenic diet, as patient only eats meat at home. - Continue Imodium, and discussed dietary modification. HTN: - History of, on captopril and carvedilol in outpatient setting. -will add amlodipine ? CAD: - History of noted in EMR, however unable to find record of any stents placed. - Patient is on aspirin and carvedilol in outpatient setting. - Continue carvedilol and aspirin. - Echo in AM as described above. DM2: - History of, on daily insulin therapy. - Continued home Lantus dosing, with SSI. - DM2 diet. - Holding metformin. BPH: - History of, on finasteride and Myrbetriq. - Continue these medications. FREDRICK: - History of, on home CPAP. - May use own CPAP if it is brought here. Otherwise continue with our CPAP with home settings. Code Status: FULL CODE FEN: DM2, Heart Healthy diet (2) Diabetes mellitus: (3) CAD (coronary artery disease): (4) Hypertension: (5) Obstructive sleep apnea: (6) Diarrhea: Total Time Total Time Spent Total Time Spent (In Minutes): 32 Total Time Includes: Examination of the Patient, Discharge Planning and Medication Reconciliation Discharge Plan Discharge Items Patient Disposition: Home - Self-Care Reason For Visit: CVA workup Discharge Diagnosis: CVA workup/ Activity: Resume your previous activity Non-emergency contact: Primary Care Provider Call non-emergency contact if: you have any medication questions Follow-up/Referrals: Lucien Woodruff MD [Primary Care Provider] - Diet: Regular Addtl Attending Provider Instructions: You were admitted with vertigo and your symptoms improved over time as you were in the hospital. Will recommend to continue to slowly increase your activity as your return to your baseline. will recommend you followup with your PCP in 1-2 weeks. Added clopidogrel 75 milligrams a day to the 81 milligram aspirin. After 3 weeks, discontinue the aspirin and remain on clopidogrel alone. meclizine could be given as needed for the vertiginous feelings Risk Factors for Stroke: You can reduce your chances of stroke by working with your medical provider to adopt a healthy lifestyle. Some specific ways to lower your chance of stroke are: * If you are a smoker, now is the time to stop smoking cigarettes * If you are diabetic, improve the control of your blood sugars * Avoid excessive amounts of alcohol * Control high blood pressure * Lose weight if you are overweight * Be sure to lead an active lifestyle * Eat a healthy diet low in salt, cholesterol and fat You should know about other risk factors for stroke that you are unable to control. These include: * Age 55 years or older * Male gender * Certain racial groups: , or / * Family History of Stroke, Mini stroke or Heart Attack * Sickle Cell Disease Follow Up: It is important for you to keep your follow up appointments with your medical provider. Who to Call and When: Medical Emergencies: Call 911 immediately if you experience any of the following warning signs and symptoms of Stroke: * Sudden numbness or weakness of the face, arm or leg, especially on one side of the body * Sudden confusion, trouble speaking or understanding * Sudden trouble seeing in one or both eyes * Sudden trouble walking, dizziness, loss of balance or coordination * Sudden severe headache with no cause Do not delay calling 911 if you experience any warning signs or symptoms of a stroke. Delay in seeking medical attention may affect what treatments can be given to you. . Pending Studies at Discharge: No Stand-Alone Forms: Medications to Prevent Stroke, [facility], Smoking Cessation Medications and DC Order Prescriptions: New clopidogrel 75 mg Tablet 75 mg PO QAM Qty: 30 RF: 0 lisinopril 5 mg tablet 5 mg PO PM Qty: 30 RF: 0 amlodipine 2.5 mg tablet 2.5 mg PO PM Qty: 30 RF: 0 Continued (DME) lancets [OneTouch Delica Lancets] 33 gauge misc See Dose Instructions .ROUTE .MEDSUPPLY Qty: 200 RF: 3 Novolog Flexpen U-100 Insulin 100 unit/mL (3 mL) insulin pen 50 units SUBCUT DAILY 90 Days Qty: 45 RF: 3 atorvastatin 80 mg tablet 80 mg PO HS Qty: 90 RF: 3 finasteride 5 mg tablet 5 mg PO DAILY Qty: 90 RF: 3 escitalopram oxalate [Lexapro] 20 mg tablet 20 mg PO QPM Qty: 90 RF: 3 Lantus Solostar U-100 Insulin 100 unit/mL (3 mL) insulin pen 24 unit subcut QAM Qty: 30 RF: 3 metformin 500 mg tablet 1,000 mg PO BID Qty: 360 RF: 1 carvedilol 3.125 mg tablet 3.125 mg PO BID Qty: 180 RF: 3 loperamide 2 mg capsule 2 mg PO BID RF: 0 (DME) pen needle, diabetic [BD Ultra-Fine Rosa Pen Needle] 32 gauge x 5/32" needle See Dose Instructions .ROUTE .MEDSUPPLY RF: 0 multivitamin Tablet 1 tab PO QAM RF: 0 aspirin 81 mg Tablet,Delayed Release (Dr/Ec) 81 mg PO QAM RF: 0 Myrbetriq 50 mg Tablet Extended Release 24 Hr 50 mg PO DAILY RF: 0 Discontinued captopril 100 mg tablet 200 mg PO BID Qty: 360 RF: 3 Discharge Orders: Discharge Order (Routine); Ordered 04/26/20 Ordered By: Asim Laboy Admission Data Admit Date/Time: 04/23/20 19:23 Attending Provider: Asim Laboy Admit Provider: Padmini Barber Primary Care Provider: Lucien Woodruff Other Providers: Gino Blum Other Interventions: Discharge Summary Assessment (RN) Last Done: 04/26/20 15:07 Coding Level of Care Code D/C Day Management >30 mins Diagnoses Stroke I63.9 CVA mechanism: unspecified Diabetes mellitus E11.9; Z79.4 Diabetes mellitus type: type 2 Diabetes mellitus [facility] insulin use: with terminal makeup operator use Diabetes mellitus complication status: without complication CAD (coronary artery disease) I25.10 Coronary Disease-Associated Artery/Lesion type: [place] artery [place] vs. transplanted heart: [place] heart Associated angina: without angina Hypertension I10 Hypertension type: essential hypertension Obstructive sleep apnea G47.33 Diarrhea R19.7 Diarrhea type: unspecified type
== END 2020-04-26 17:00 | disposition home or self-care (01) | DRG 66 ==
LOC: ED 12:33 → SUATTDRO 19:23 → 2S 19:23